=== PATIENT | female | born 1980 | race Caucasian/White ===

== ENCOUNTER 2017-01-16 07:20 | Emergency (ER) | payer OTHER ==
[~2017-01-16] VITALS: Ht 165.1 cm; Wt 81.2 kg
[~2017-01-16 07:20] MED LIST: BACTDS PO; CEPH-443 PO; GLIP2.5T14 PO; HYDR-762 PO; IBUP800T25 PO; OMEP40CA6 PO; ONDA4TAB35 PO
[2017-01-16 07:21] VITALS: Ht 165.1 cm; Wt 81.2 kg
[2017-01-16] MEDS ORDERED: ONDANSETRON 4 MG INJ IV STA (07:58)
[2017-01-16] MEDS ORDERED: SOD CHLORIDE 0.9% 1,000 ML IV STA (07:58)
[2017-01-16] MEDS ORDERED: morphine 4 MG/ML VIAL IV STA (08:23)
--- NOTE | 2017-01-16 08:30 | RADRPT ---
PROCEDURE: US Abdomen (right upper quadrant). CLINICAL INDICATION: Abdominal pain. History of cholecystectomy. TECHNIQUE: Multiple real-time longitudinal and transverse images of the right upper quadrant of th e abdomen were acquired utilizing a curved array transducer. Images were reviewed on a high-resoluti on PACS workstation. COMPARISON: CT abdomen pelvis 12/19/2015. FINDINGS: The liver is hepatomegaly 21.1 cm in length with a coarsened echotexture throughout suggesting steat osis without intrahepatic biliary dilatation. There is a cystic area in the region of the medial seg ment of the left lobe of the liver with some internal shadowing. This is of uncertain significance. There is normal hepatopedal flow within the main portal vein. The gallbladder is surgically absent . The common bile duct measures 6.0 mm in maximal dimension. The visualized portions of the pancre as are unremarkable. No free fluid is identified. The right kidney measures 12.2 cm in length. There is normal echogenicity within the right kidney. There is no perinephric fluid collection. No hydronephrosis, mass, or calculus is seen. IMPRESSION: 1. Hepatomegaly with a coarsened echotexture consistent with diffuse steatosis. 2. Previous cholecystectomy with mild dilation of the common bile duct at 6 mm. 3. 3.1 x 3.0 x 2.3 cm cystic area in the medial segment of the left lobe of the liver with some inte rnal echoes. This was not present on the CT scan of 12/19/2015. RPTAT: [facility] Physician Darío Date Time Electronically viewed and signed by Physician Darío on 01/16/2017 08:30 NORAH/
[2017-01-16 08:35] LABS: ADD UMIC YES; UR BILIRUBIN (Dip) NEGATIVE (NEGATIVE); UR BLOOD (Dip) TRACE (NEGATIVE); UR CLARITY CLEAR (CLEAR); UR COLOR LT. YELLOW (YELLOW); UR GLUCOSE (Dip) >=1000 % (NEGATIVE); UR KETONES (Dip) 15 (NEGATIVE); UR LEUKOCYTE ESTERASE (Dip) NEGATIVE (NEGATIVE); UR NITRITE (Dip) NEGATIVE (NEGATIVE); UR TOTAL PROTEIN (Dip) NEGATIVE (NEGATIVE); UR UROBILINOGEN (Dip) 0.2 E.U./dL (0.1-1.0)
[2017-01-16 08:39] LABS: ADD SCAN DIFF NO
[2017-01-16 08:44] LABS: BASOPHIL # 0.1 10^3/ul (0.0-0.1); BASOPHILS % 0.6 % (0.0-2.0); EOSINOPHILS # 0.3 10^3/ul (0.0-0.5); HEMATOCRIT 46.4 % (37.0-47.0); HEMOGLOBIN 16.2 g/dl (12.0-16.0); LYMPHOCYTES # 3.7 10^3/ul (0.8-2.9); LYMPHOCYTES % 40.3 % (15.0-51.0); MEAN CORPUSCULAR HEMOGLOBIN 31.2 pg (29.0-33.0); MEAN CORPUSCULAR HGB CONC 34.9 g/dl (32.0-37.0); MEAN CORPUSCULAR VOLUME 89.4 fl (82.0-101.0); MEAN PLATELET VOLUME 10.3 fl (7.4-10.4); MONOCYTE # 0.4 10^3/ul (0.3-0.9); MONOCYTES % 4.3 % (0.0-11.0); NEUTROPHIL # 4.8 10^3/ul (1.6-7.5); NEUTROPHILS % 51.6 % (39.0-77.0); PLATELET COUNT 218 10^3/UL (140-415); RED BLOOD COUNT 5.19 10^6/ul (4.20-5.40); RED CELL DISTRIBUTION WIDTH 12.5 % (11.5-14.5); WHITE BLOOD COUNT 9.3 10^3/ul (4.8-10.8)
[2017-01-16 08:57] LABS: ALBUMIN 4.6 g/dl (3.3-4.9); ALBUMIN/GLOBULIN RATIO 1.27; BILIRUBIN,INDIRECT 0.9 mg/dl (0-1.1); BILIRUBIN,TOTAL 0.9 mg/dl (0.2-1.3); CALCIUM 9.6 mg/dl (8.4-10.2); CREATININE 0.45 mg/dl (0.44-1.00); POTASSIUM 4.5 mmol/L (3.5-5.1); TOTAL PROTEIN 8.2 g/dl (6.1-8.1)
[2017-01-16 08:59] LABS: UR BACTERIA OCCASIONAL; UR SQUAMOUS EPITHELIAL CELL FEW; URINE RBCS 0-2 /HPF (0)
[2017-01-16] MEDS ORDERED: DICYCLOMINE 10 MG CAP PO ONE (10:00)
[2017-01-16] MEDS ORDERED: DICY10CA60 PO (10:38)
--- NOTE | 2017-01-16 10:42 | ERD ---
ER Documentation Chief Complaint Date/Time DATE: 01/16/17 TIME: 10:39 Chief Complaint ap intermittent since monday HPI 36-year-old female with a past medical history of diabetes, status post cholecystectomy in January 2016 presents to the ED complaining of a constant burning right upper quadrant pain that radiates to her back that started 4 days ago. Reports that her last menses was on December 20, 2016. States that her surgeon that did the cholecystectomy was Dr. Ramirez. Reports that she is taking glyburide. States that she went to [facility] in September 2016 and they stated that she had residual gallstones. Reports that she feels nauseous but denies any vomiting. Denies any vaginal bleeding, vaginal discharge, chest pain, shortness of breath, diarrhea, constipation. ROS All systems reviewed and are negative except as per history of present illness. Medications Home Meds Active Scripts Ondansetron (Ondansetron Odt) 4 Mg Tab.rapdis, 4 MG PO Q6H Y for NAUSEA AND/OR VOMITING, #10 TAB Prov:SERENA MARINA PA-C 01/16/17 Dicyclomine Hcl* (Bentyl*) 10 Mg Capsule, 10 MG PO QID, #30 CAP Prov:SERENA MARINA PA-C 01/16/17 Ibuprofen* (Motrin*) 800 Mg Tab, 800 MG PO Q6H Y for PAIN AND OR ELEVATED TEMP, #30 TAB Prov:LESLY MAYER PA-C 12/19/15 Ondansetron Hcl* (Zofran* ODT) 4 mg -ODT Tab.disper, 4 MG PO Q6 Y for NAUSEA AND /OR VOMITING, #20 TAB Prov:BRIDGET SANTIAGO 05/28/15 Hydrocodone Bit-Acetaminophen* ([place]*) 10-325 Mg Tablet, 1 TAB PO Q6 Y for PAIN , #20 TAB Prov:FRANCIA BLANCA PA-C 05/26/15 Reported Medications Glipizide XL* (Glipizide XL*) 2.5 Mg Tab.er.24, 2.5 MG PO DAILY, TAB 01/06/16 Omeprazole* (Omeprazole*) 40 Mg Capsule.dr, 40 MG PO DAILY, #30 CAP 01/06/16 Allergies Allergies: Coded Allergies: piperacillin (Verified Allergy, Unknown, 01/16/17) tazobactam (Verified Allergy, Unknown, 01/16/17) PMhx/Soc History of Surgery: Yes (CSECTION X 1, EXPLORATORY LAPAROTOMY, SEPTUM ; GALLBLADDER REMOVAL) Anesthesia Reaction: No Hx Neurological Disorder: No Hx Respiratory Disorders: No Hx Cardiac Disorders: No Hx Psychiatric Problems: No Hx Miscellaneous Medical Probl: No (DIABETES MELLITUS) Hx Alcohol Use: Yes Hx Substance Use: No Hx Tobacco Use: No Smoking Status: Never smoker Physical Exam Vitals Vital Signs Date Time Temp Pulse Resp B/P Pulse Ox O2 Delivery O2 Flow Rate FiO2 01/16/17 09:30 98.1 80 18 133/83 100 Room Air 01/16/17 07:21 97.8 90 18 154/94 99 Physical Exam Const: [id number], well-nourished. In no acute distress. Head: Atraumatic, normocephalic Eyes: Normal Conjunctiva without injection. No purulent discharge. ENT: Normal external ear, nose. Moist oropharynx without tonsillar exudates. Non -erythematous pharynx. Uvula midline. No drooling. No trismus. Neck: No cervical midline tenderness. Full range of motion. No meningismus. No cervical lymphadenopathy. No JVD. Resp: Clear to auscultation bilaterally. No wheezing, rhonchi, rales, or crackles. No accessory muscle use. No retractions. Cardio: Regular rate and rhythm. No murmurs, rubs or gallops. Abd: Soft, right upper quadrant tenderness, non distended. Normal bowel sounds. No palpable masses. No rebound tenderness. No guarding. Negative McBurney' s point. Negative psoas sign. Negative obturator sign. Skin: No petechiae or rashes Back: No midline tenderness. No CVA tenderness. Ext: No cyanosis, or edema. Neur: Awake and alert. Normal gait. Normal coordination. Psych: Normal Mood and Affect Results 24 hrs Laboratory Tests Test 01/16/17 08:00 01/16/17 08:25 01/16/17 09:56 Urine Color LT. YELLOW Urine Clarity CLEAR Urine pH 6.0 Urine Specific [place] 1.010 Urine Ketones 15 Urine Nitrite NEGATIVE Urine Bilirubin NEGATIVE Urine Urobilinogen 0.2 E.U./dL Urine Leukocyte Esterase NEGATIVE Urine Microscopic RBC 0-2/HPF Urine Microscopic WBC 0-2/HPF Urine Squamous Epithelial Cells FEW Urine Bacteria OCCASIONAL Urine Hemoglobin TRACE Urine Glucose >=1000% Urine Total Protein NEGATIVE White Blood Count 9.310^3/ul Red Blood Count 5.1910^6/ul Hemoglobin 16.2g/dl Hematocrit 46.4% Mean Corpuscular Volume 89.4fl Mean Corpuscular Hemoglobin 31.2pg Mean Corpuscular Hemoglobin Concent 34.9g/dl Red Cell Distribution Width 12.5% Platelet Count 31822^3/UL Mean Platelet Volume 10.3fl Neutrophils % 51.6% Lymphocytes % 40.3% Monocytes % 4.3% Eosinophils % 3.0% Basophils % 0.6% Nucleated Red Blood Cells % 0.0/100WBC Neutrophils # 4.810^3/ul Lymphocytes # 3.710^3/ul Monocytes # 0.410^3/ul Eosinophils # 0.310^3/ul Basophils # 0.110^3/ul Nucleated Red Blood Cells # 0.010^3/ul Sodium Level 135mmol/L Potassium Level 4.5mmol/L Chloride Level 104mmol/L Carbon Dioxide Level 21mmol/L Anion Gap 15 Blood Urea Nitrogen 11mg/dl Creatinine 0.45mg/dl Glucose Level 314mg/dl Calcium Level 9.6mg/dl Total Bilirubin 0.9mg/dl Direct Bilirubin 0.00mg/dl Indirect Bilirubin 0.9mg/dl Aspartate Amino Transf (AST/SGOT) 34IU/L Alanine Aminotransferase (ALT/SGPT) 43IU/L Alkaline Phosphatase 99IU/L Total Protein 8.2g/dl Albumin 4.6g/dl Globulin 3.60g/dl Albumin/Globulin Ratio 1.27 Lipase 108U/L Bedside Glucose 251mg/dL Current Medications Medications (Trade) Dose Ordered Sig/Yinka Route PRN Reason Start Time Stop Time Status Last Admin Dose Admin Sodium Chloride (NS) 1,000 ml @ 1,000 mls/hr Q1H STAT IV 01/16/17 07:58 01/16/17 08:57 DC 01/16/17 08:28 Ondansetron HCl (Zofran Inj) 4 mg ONCE STAT IV 01/16/17 07:58 01/16/17 08:00 DC 01/16/17 08:28 Morphine Sulfate (morphine) 4 mg ONCE STAT IV 01/16/17 08:23 01/16/17 08:24 DC 01/16/17 08:36 Dicyclomine HCl (Bentyl) 10 mg ONCE ONCE PO 01/16/17 10:00 01/16/17 10:01 DC 01/16/17 10:04 Procedures/[facility] This is a 36-year-old female with a past medical history of diabetes and status post cholecystectomy presenting to the ED complaining of right upper quadrant pain. Patient is afebrile and nontoxic-appearing. Patient has normal vital signs. Patient was further worked up with CBC, CMP, lipase, UA, urine , gallbladder ultrasound. Patient's pain and symptoms have improved after treatment with 4 mg IV Morphine, 4 mg IV Zofran, Bentyl. CBC: No leukocytosis. No e/o of systemic infection. No e/o anemia. CMP: No e/o severe acidosis, alkalosis, renal failure, diabetic ketoacidosis, liver disease Lipase within normal limits. Urine: No leukocyte esterase, no nitrites, no hematuria. Urine : Negative PROCEDURE: US Abdomen (right upper quadrant). CLINICAL INDICATION: Abdominal pain. History of cholecystectomy. TECHNIQUE: Multiple real-time longitudinal and transverse images of the right upper quadrant of the abdomen were acquired utilizing a curved array transducer. Images were reviewed on a high-resolution PACS workstation. COMPARISON: CT abdomen pelvis 12/19/2015. FINDINGS: The liver is hepatomegaly 21.1 cm in length with a coarsened echotexture throughout suggesting steatosis without intrahepatic biliary dilatation. There is a cystic area in the region of the medial segment of the left lobe of the liver with some internal shadowing. This is of uncertain significance. There is normal hepatopedal flow within the main portal vein. The gallbladder is surgically absent. The common bile duct measures 6.0 mm in maximal dimension. The visualized portions of the pancreas are unremarkable. No free fluid is identified. The right kidney measures 12.2 cm in length. There is normal echogenicity within the right kidney. There is no perinephric fluid collection. No hydronephrosis, mass, or calculus is seen. IMPRESSION: 1. Hepatomegaly with a coarsened echotexture consistent with diffuse steatosis. 2. Previous cholecystectomy with mild dilation of the common bile duct at 6 mm. 3. 3.1 x 3.0 x 2.3 cm cystic area in the medial segment of the left lobe of the liver with some internal echoes. This was not present on the CT scan of 2015. Patient was noted to have diffuse steatosis noted on her gallbladder ultrasound. This could be the reason for patient's right upper quadrant pain there is no gallstones noted. No leukocytosis. No transaminitis. No elevated bilirubin. Low suspicion for cholangitis, choledocholithiasis, pancreatitis, or other emergent conditions. A differential diagnosis considered includes but is not limited to gastritis, GERD, peptic ulcer disease, cholecystitis, choledocholithiasis, cholangitis, pancreatitis, appendicitis, bowel obstruction , ileus, volvulus, nephrolithiasis, pyelonephritis, hepatitis, perforated viscus , diverticulitis, abdominal hernia, acute abdomen, mesenteric ischemia or other emergent conditions. This case was discussed with my supervising physician Dr. Siegel who agreed with the management and discharge plan. Discharge medications: Angela Wong Follow up with primary care physician and Dr. Ramirez in 1-2 days. Instructed patient to return to the ED sooner for any worsening symptoms. Patient's questions were answered. Patient understood and agreed with discharge plan. Patient discharged stable. Departure Diagnosis: Primary Impression: Right upper quadrant pain Condition: Stable Patient Instructions: Abdominal Pain, Unknown Cause, (Female) Referrals: [facility] YOU HAVE RECEIVED A MEDICAL SCREENING EXAM AND THE RESULTS INDICATE THAT YOU DO NOT HAVE A CONDITION THAT REQUIRES URGENT TREATMENT IN THE EMERGENCY DEPARTMENT. FURTHER EVALUATION AND TREATMENT OF YOUR CONDITION CAN WAIT UNTIL YOU ARE SEEN IN YOUR DOCTORS OFFICE WITHIN THE NEXT 1-2 DAYS. IT IS YOUR RESPONSIBILITY TO MAKE AN APPOINTMENT FOR FOLOW-UP CARE. IF YOU HAVE A PRIMARY DOCTOR --you should call your primary doctor and schedule an appointment IF YOU DO NOT HAVE A PRIMARY DOCTOR YOU CAN CALL OUR PHYSICIAN REFERRAL HOTLINE AT IF YOU CAN NOT AFFORD TO SEE A PHYSICIAN YOU CAN CHOSE FROM THE FOLLOWING [facility] [address] [facility] [address] [facility] [address] [facility] [address] [facility] [address] [facility] [facility] [address] [facility]. [facility] YOU HAVE RECEIVED A MEDICAL SCREENING EXAM AND THE RESULTS INDICATE THAT YOU DO NOT HAVE A CONDITION THAT REQUIRES URGENT TREATMENT IN THE EMERGENCY DEPARTMENT. FURTHER EVALUATION AND TREATMENT OF YOUR CONDITION CAN WAIT UNTIL YOU ARE SEEN IN YOUR DOCTORS OFFICE WITHIN THE NEXT 1-2 DAYS. IT IS YOUR RESPONSIBILITY TO MAKE AN APPOINTMENT FOR FOLOW-UP CARE. IF YOU HAVE A PRIMARY DOCTOR --you should call your primary doctor and schedule and appointment IF YOU DO NOT HAVE A PRIMARY DOCTOR YOU CAN CALL OUR PHYSICIAN REFERRAL HOTLINE AT . IF YOU CAN NOT AFFORD TO SEE A PHYSICIAN YOU CAN CHOSE FROM THE FOLLOWING [facility] INSTITUTIONS: [facility] [address] [place] [address] [facility] [address] [place] [address] [facility] [address] [place] [address] [facility] Additional Instructions: FOLLOW UP WITH YOUR PRIMARY CARE PHYSICIAN TOMORROW for a referral to front edger. Return to this facility if you are not improving as expected. SERENA MARINA PA-C Jan 16, 2017 10:42 SERENA MARINA PA-C Jan 16, 2017 10:42
[2017-01-16] MEDS ORDERED: ONDA4TAB14 PO (10:43)
[2017-01-16 10:53] VITALS: BP 110/78; PULSE 78; RESP 18; TEMP 98.2
== END 2017-01-16 10:55 | disposition home or self-care (01) ==
LOC: FTE 07:20
DX: R10.11 Right upper quadrant pain (principal); E11.9 Type 2 diabetes mellitus without complications; R11.0 Nausea; Z79.84 Long term (current) use of oral hypoglycemic drugs
CPT/HCPCS: 76705; 80053; 81001; 82962; 83690; 85025; J2270; J2405; J7030; Z7610; 81003; 96361; 96374; 96375

== ENCOUNTER 2017-02-03 12:32 | Emergency (ER) | payer OTHER ==
[~2017-02-03] VITALS: Wt 90.5 kg
[~2017-02-03 12:32] MED LIST changes: -BACTDS PO; -CEPH-443 PO; +DICY10CA60 PO; +ONDA4TAB14 PO
[2017-02-03] MEDS ORDERED: SOD CHLORIDE 0.9% 1,000 ML IV STA (12:58)
[2017-02-03] MEDS ORDERED: morphine 4 MG/ML VIAL IV STA (12:58)
[2017-02-03] MEDS ORDERED: ONDANSETRON 4 MG INJ IV STA (12:58)
[2017-02-03] MEDS ORDERED: FAMOTIDINE 20 MG INJ IV STA (12:58)
[2017-02-03 13:36] LABS: ADD SCAN DIFF NO
[2017-02-03 13:38] LABS: ABNORMAL IP MESSAGE 1; BASOPHIL # 0.1 10^3/ul (0.0-0.1); BASOPHILS % 0.5 % (0.0-2.0); EOSINOPHILS # 0.4 10^3/ul (0.0-0.5); EOSINOPHILS % 3.7 % (0.0-7.0); HEMATOCRIT 47.1 % (37.0-47.0); HEMOGLOBIN 16.5 g/dl (12.0-16.0); LYMPHOCYTES # 5.1 10^3/ul (0.8-2.9); LYMPHOCYTES % 46.1 % (15.0-51.0); MEAN CORPUSCULAR HEMOGLOBIN 30.9 pg (29.0-33.0); MEAN CORPUSCULAR VOLUME 88.2 fl (82.0-101.0); MEAN PLATELET VOLUME 10.1 fl (7.4-10.4); MONOCYTE # 0.4 10^3/ul (0.3-0.9); MONOCYTES % 3.9 % (0.0-11.0); NEUTROPHILS % 45.5 % (39.0-77.0); PLATELET COUNT 246 10^3/UL (140-415); RED BLOOD COUNT 5.34 10^6/ul (4.20-5.40)
[2017-02-03 13:44] LABS: ADD UMIC YES; URINE BILIRUBIN (Dip) NEGATIVE (NEGATIVE); URINE BLOOD (Dip) 1+ (NEGATIVE); URINE COLOR LT. YELLOW (YELLOW); URINE GLUCOSE (Dip) >=1000 % (NEGATIVE); URINE KETONES (Dip) TRACE (NEGATIVE); URINE LEUKOCYTE ESTERASE (Dip) NEGATIVE (NEGATIVE); URINE NITRITE (Dip) POSITIVE (NEGATIVE); URINE TOTAL PROTEIN (Dip) NEGATIVE (NEGATIVE); URINE UROBILINOGEN (Dip) 0.2 E.U./dL (0.1-1.0)
[2017-02-03 13:56] LABS: ALBUMIN 4.7 g/dl (3.3-4.9); ALBUMIN/GLOBULIN RATIO 1.3; BILIRUBIN,INDIRECT 0.7 mg/dl (0-1.1); BILIRUBIN,TOTAL 0.7 mg/dl (0.2-1.3); CALCIUM 9.5 mg/dl (8.4-10.2); CREATININE 0.45 mg/dl (0.44-1.00); POTASSIUM 4.1 mmol/L (3.5-5.1); TOTAL PROTEIN 8.3 g/dl (6.1-8.1)
--- NOTE | 2017-02-03 14:04 | RADRPT ---
PROCEDURE: US Abdomen (right upper quadrant). CLINICAL INDICATION: Right upper quadrant pain. TECHNIQUE: Multiple real-time longitudinal and transverse images of the right upper quadrant of th e abdomen were acquired utilizing a curved array transducer. Images were reviewed on a high-resoluti on PACS workstation. COMPARISON: 01/16/2017. FINDINGS: The liver is borderline enlarged at 19.4 cm with a coarse echotexture suggesting steatosis. The pre viously described hypoechoic focus in the right lobe of the liver measures 3.3 x 2.0 x 2.5 cm. This contains some calcification in the periphery. There is normal hepatopedal flow within the main ana maría l vein. The gallbladder is surgically absent The common bile duct measures 4.3 mm in maximal dimen jania. The visualized portions of the pancreas are unremarkable with obscuration of the tail of the pancreas. No free fluid is identified. The right kidney measures 11.1 cm in length. There is normal echogenicity within the right kidney. There is no perinephric fluid collection. No hydronephrosis, mass, or calculus is seen. IMPRESSION: 1. Hepatomegaly with a coarse echotexture suggesting diffuse steatosis. 2. Previous cholecystectomy without significant biliary tree dilatation. 3. No change in a partially calcified cystic area in the right lobe of the liver measuring 3.3 x 2. 0 x 2.5 cm. RPTAT: [facility] Physician Darío Date Time Electronically viewed and signed by Physician Darío on 02/03/2017 14:03 /
[2017-02-03 14:12] LABS: BACTERIA,URINE MODERATE; URINE RBCS 0-2 /HPF (0)
[2017-02-03] MEDS ORDERED: HYDR-906 PO (14:33)
[2017-02-03] MEDS ORDERED: KETOROLAC 30 MG INJ IV STA (14:33)
[2017-02-03] MEDS ORDERED: NITR-58 PO (14:33)
[2017-02-03] MEDS ORDERED: IBUP-1542 PO (14:35)
[2017-02-03] MEDS ORDERED: ONDA4TAB8 PO (14:36)
--- NOTE | 2017-02-03 14:48 | ERD ---
ER Documentation Chief Complaint Date/Time DATE: 02/03/17 TIME: 14:44 Chief Complaint r upper abd pain for the past week. nausea and vomiting no diarrhea HPI This is a 36-year-old female that presents to the ER with right upper quadrant pain that started last week. Patient states that right upper quadrant pain radiates to her back and is sharp and now constant. Patient states that 3 weeks ago she began to have right upper quadrant pain, even though she did have a cholecystectomy last December. Pain however has gotten worse and is now constant. Patient has nausea and nonbilious nonbloody vomiting. She denies any fevers or chills she denies any diarrhea. ROS 12 point review of systems was done, all negative except per HPI. Medications Home Meds Active Scripts Ondansetron Hcl* (Zofran*) 4 Mg Tablet, 4 MG PO Q6H for NAUSEA AND/OR VOMITING, #30 TAB Prov:BRIDGET SANTIAGO 02/03/17 Ibuprofen* (Motrin*) 600 Mg Tab, 600 MG PO Q6, #30 TAB Prov:BRIDGET SANTIAGO 02/03/17 Nitrofurantoin Monohyd Macrocr* (Macrobid*) 100 Mg Capsr, 100 MG PO BID for 7 Days, CAP Prov:BRIDGET SANTIAGO 02/03/17 Hydrocodone/Acetaminophen ([place] 5-325 Tablet) 1 Each Tablet, 1 TAB PO Q6H Y for PAIN, #10 TAB Prov:BRIDGET SANTIAGO 02/03/17 Ondansetron (Ondansetron Odt) 4 Mg Tab.rapdis, 4 MG PO Q6H Y for NAUSEA AND/OR VOMITING, #10 TAB Prov:SERENA MARINA PA-C 01/16/17 Dicyclomine Hcl* (Bentyl*) 10 Mg Capsule, 10 MG PO QID, #30 CAP Prov:SERENA MARINA PA-C 01/16/17 Ibuprofen* (Motrin*) 800 Mg Tab, 800 MG PO Q6H Y for PAIN AND OR ELEVATED TEMP, #30 TAB Prov:LESLY MAYER PA-C 12/19/15 Ondansetron Hcl* (Zofran* ODT) 4 mg -ODT Tab.disper, 4 MG PO Q6 Y for NAUSEA AND /OR VOMITING, #20 TAB Prov:BRIDGET SANTIAGO 05/28/15 Hydrocodone Bit-Acetaminophen* ([place]*) 10-325 Mg Tablet, 1 TAB PO Q6 Y for PAIN , #20 TAB Prov:RIANNAFRANCIA Figueroa PA-C 05/26/15 Reported Medications Glipizide XL* (Glipizide XL*) 2.5 Mg Tab.er.24, 2.5 MG PO DAILY, TAB 01/06/16 Omeprazole* (Omeprazole*) 40 Mg Capsule.dr, 40 MG PO DAILY, #30 CAP 01/06/16 Allergies Allergies: Coded Allergies: piperacillin (Verified Allergy, Unknown, 02/03/17) tazobactam (Verified Allergy, Unknown, 02/03/17) PMhx/Soc History of Surgery: Yes (CSECTION X 1, EXPLORATORY LAPAROTOMY, SEPTUM ; GALLBLADDER REMOVAL) Anesthesia Reaction: No Hx Neurological Disorder: No Hx Respiratory Disorders: No Hx Cardiac Disorders: Yes (chlolesterol) Hx Psychiatric Problems: No Hx Miscellaneous Medical Probl: No (DIABETES MELLITUS) Hx Alcohol Use: Yes Hx Substance Use: No Hx Tobacco Use: No Smoking Status: Never smoker Physical Exam Vitals Vital Signs Date Time Temp Pulse Resp B/P Pulse Ox O2 Delivery O2 Flow Rate FiO2 02/03/17 12:36 98.3 92 21 140/91 98 Physical Exam GENERAL: The patient is well developed and appropriate for usual state of health , in no apparent distress. HEENT: Atraumatic. CHEST: Clear to auscultation bilaterally. There are no rales, wheezes or rhonchi. HEART: Regular rate and rhythm. No murmurs, clicks, rubs or gallops. ABDOMEN: Soft, nondistended, tender to palpation in the right upper quadrant good bowel sounds. No rebound or guarding. No gross peritonitis. No gross organomegaly or masses. No Dominique sign or McBurney point tenderness. BACK: No midline or flank tenderness. NEURO: Alert and oriented. SKIN:The skin is warm and dry. Result Diagram: 02/03/17 1325 02/03/17 1325 Results 24 hrs Laboratory Tests Test 02/03/17 13:20 02/03/17 13:25 Urine Color LT. YELLOW Urine Clarity CLEAR Urine pH 5.5 Urine Specific [place] 1.025 Urine Ketones TRACE Urine Nitrite POSITIVE Urine Bilirubin NEGATIVE Urine Urobilinogen 0.2 E.U./dL Urine Leukocyte Esterase NEGATIVE Urine Microscopic RBC 0-2/HPF Urine Microscopic WBC 5-10/HPF Urine Epithelial Cells FEW Urine Bacteria MODERATE Urine Hemoglobin 1+ Urine Glucose >=1000% Urine Total Protein NEGATIVE White Blood Count 11.010^3/ul Red Blood Count 5.3410^6/ul Hemoglobin 16.5g/dl Hematocrit 47.1% Mean Corpuscular Volume 88.2fl Mean Corpuscular Hemoglobin 30.9pg Mean Corpuscular Hemoglobin Concent 35.0g/dl Red Cell Distribution Width 12.0% Platelet Count 59560^3/UL Mean Platelet Volume 10.1fl Neutrophils % 45.5% Lymphocytes % 46.1% Monocytes % 3.9% Eosinophils % 3.7% Basophils % 0.5% Nucleated Red Blood Cells % 0.0/100WBC Neutrophils # 5.010^3/ul Lymphocytes # 5.110^3/ul Monocytes # 0.410^3/ul Eosinophils # 0.410^3/ul Basophils # 0.110^3/ul Nucleated Red Blood Cells # 0.010^3/ul Sodium Level 136mmol/L Potassium Level 4.1mmol/L Chloride Level 100mmol/L Carbon Dioxide Level 23mmol/L Anion Gap 17 Blood Urea Nitrogen 7mg/dl Creatinine 0.45mg/dl Glucose Level 259mg/dl Calcium Level 9.5mg/dl Total Bilirubin 0.7mg/dl Direct Bilirubin 0.00mg/dl Indirect Bilirubin 0.7mg/dl Aspartate Amino Transf (AST/SGOT) 43IU/L Alanine Aminotransferase (ALT/SGPT) 63IU/L Alkaline Phosphatase 112IU/L Total Protein 8.3g/dl Albumin 4.7g/dl Globulin 3.60g/dl Albumin/Globulin Ratio 1.30 Lipase 170U/L Current Medications Medications (Trade) Dose Ordered Sig/Yinka Route PRN Reason Start Time Stop Time Status Last Admin Dose Admin Sodium Chloride (NS) 1,000 ml @ 1,000 mls/hr Q1H STAT IV 02/03/17 12:58 02/03/17 13:57 DC 02/03/17 13:25 Morphine Sulfate (morphine) 6 mg ONCE STAT IV 02/03/17 12:58 02/03/17 12:59 DC 02/03/17 13:25 Ondansetron HCl (Zofran Inj) 4 mg ONCE STAT IV 02/03/17 12:58 02/03/17 12:59 DC 02/03/17 13:24 Famotidine (Pepcid Iv) 20 mg ONCE STAT IV 02/03/17 12:58 02/03/17 12:59 DC 02/03/17 13:24 Ketorolac Tromethamine (Toradol) 30 mg ONCE STAT IV 02/03/17 14:33 02/03/17 14:34 DC Procedures/MDM Differential Diagnosis: GERD, gastritis, peptic ulcer disease, pancreatitis, cholecystitis, choledocholithiasis, biliary colic, cholangitis, Puna-Iotx-Zfgcab , ACS/MS, Pnuemonia. This is a 36-year-old female presents to the ER with right upper quadrant pain. Patient did have a cholecystectomy a year ago. At that time ultrasound is negative for any biliary tree dilation. Patient liver function tests and lipase is normal. I doubt cholangitis. Doubt pancreatitis. Patient is afebrile and well-appearing. Patient will be sent home with Newnan , ibuprofen, Zofran and Macrobid for the UTI that was found here in the ER. Patient has an appointment with her surgeon on Monday. She also needs to follow-up with her primary care doctor within 1-2 days or return to ER sooner if symptoms worsen. My medical decision making was shared with the patient she understands and agrees with plan Departure Diagnosis: Primary Impression: UTI (urinary tract infection) Additional Impression: Abdominal pain Condition: Stable Patient Instructions: Abdominal Pain, Understanding Urinary Tract Infections ( UTIs) Additional Instructions: Call your primary care doctor TOMORROW for an appointment during the next 1-2 days.See the doctor sooner or return here if your condition worsens before your appointment time. BRIDGET SANTIAGO February 03, 2017 14:48
[2017-02-03 15:36] VITALS: BP 130/80; PULSE 79; RESP 18; TEMP 98.7
== END 2017-02-03 15:37 | disposition home or self-care (01) ==
LOC: FTE 12:32
DX: N39.0 Urinary tract infection, site not specified (principal); R11.2 Nausea with vomiting, unspecified; E11.9 Type 2 diabetes mellitus without complications; Z79.84 Long term (current) use of oral hypoglycemic drugs
CPT/HCPCS: 76705; 80053; 81001; 81003; 83690; 85025; J1885; J2270; J2405; J7030; Z7610; 36415; 96374; 96375

== ENCOUNTER 2017-02-10 09:14 | Inpatient (IN) | payer OTHER ==
[2017-02-09 14:24] VITALS: Ht 160 cm; Wt 93.0 kg
[~2017-02-10] VITALS: Ht 160 cm; Wt 93.0 kg
[2017-02-10] VITALS (20 sets, daily range): BP systolic 106–136; BP diastolic 53–78; PULSE 72–92; RESP 10–36
[~2017-02-10 09:14] MED LIST changes: +ACETAMINOPHEN 1000 MG/100 ML IVPB ONE; +HYDR-906 PO; +IBUP-1542 PO; +NITR-58 PO; +ONDA4TAB8 PO
[2017-02-10] MEDS ORDERED: METF500T4 PO (10:35)
[2017-02-10] MEDS ORDERED: OMEG1CAP90 PO (10:35)
[2017-02-10 10:44] LABS: INR 0.92; PARTIAL THROMBOPLASTIN TIME 25.8 Sec (25.0-35.0); PROTIME 12.4 Sec (12.2-14.2)
[2017-02-10] MEDS ORDERED: CLINDAMYCIN 600 MG/D5W (PMX) 50 ML IVPB ONE (11:00)
[2017-02-10] MEDS ORDERED: SOD CHLORIDE 0.9% 1,000 ML IV SCH (11:00)
[2017-02-10] MEDS ORDERED: PROPOFOL 0 ML ONE (12:25)
[2017-02-10] MEDS ORDERED: DEXAMETHASONE 4 MG/ML 1 ML INJ ONE (12:43)
[2017-02-10] MEDS ORDERED: ROCURONIUM 50 MG INJ ONE (13:01)
[2017-02-10] MEDS ORDERED: LABETALOL HCL 20MG INJ ONE (13:11)
[2017-02-10] MEDS ORDERED: BUPIVACAINE 0.25% (MPF) 30 ML INJ ONE (13:11)
[2017-02-10] MEDS ORDERED: MEPERIDINE 100 MG INJ ONE (13:12)
[2017-02-10] MEDS ORDERED: PROPOFOL 40 ML ONE (13:30)
[2017-02-10] MEDS ORDERED: ONDANSETRON 4 MG INJ ONE (13:30)
[2017-02-10] MEDS ORDERED: PROPOFOL 100 ML ONE (13:30)
[2017-02-10] MEDS ORDERED: GLYCOPYRROLATE 0.4 MG INJ ONE (13:47)
[2017-02-10] MEDS ORDERED: NEOSTIGMINE 3 MG/3 ML SYRINGE ONE (13:47)
--- NOTE | 2017-02-10 14:02 | OPR ---
Date/Time of Note Date/Time of Note DATE: 02/10/17 TIME: 14:01 Operative Report Procedure Date: February 10, 2017 Preoperative Diagnosis gallbladder remnant possible cystic duct with stones Postoperative Diagnosis same Operation Performed open adiel with cystic duct remnant resection localized adjacent tissue transfer with the use of skin flaps Surgeon: Taras BLISS Specimens gallbladder Taras BLISS February 10, 2017 14:02
[2017-02-10] MEDS: SOD CHLORIDE 0.9% 1,000 ML IV SCH ×2 (14:03→23:40)
--- NOTE | 2017-02-10 14:20 | OPR ---
DATE OF OPERATION: 02/10/2017 INDICATION: This is a 36-year-old female who had undergone previous laparoscopic cholecystectomy. She has been having persistent symptoms, on imaging is found to have dilation of the remnant cystic duct with stones. She requests open cholecystectomy and cystic duct resection for definitive manage ment. Risks, alternatives, benefits, and personnel were discussed with patient. Patient expressed understanding and consents to the operation. PREOPERATIVE DIAGNOSIS: Remnant cystic duct dilation. POSTOPERATIVE DIAGNOSIS: Remnant cystic duct dilation. PROCEDURE: 1. Open cholecystectomy with cystic duct remnant resection. 2. Localized adjacent tissue transfer to skin flaps: 3. Therapeutic injection of localized anesthesia, CPT code 49140. SURGEON: Rui Urbina MD SPECIMEN: Remnant cystic duct dilation with gallstones. COMPLICATIONS: None. ANESTHESIA: General. PROCEDURE: The patient was taken to the OR and prepped and draped in the usual sterile fashion. Carreon rgical timeout was performed. IV antibiotics were given. Right subcostal incision was made with a 10 blade. Dissection cautery was carried down through the abdominal wall. Retractions were placed. On appearance, there is no identified gallbladder; however, on further closer inspection, intrahe patic cystic duct remnant is apparent with dilatation and stones. A right angle was placed after di ssection cautery through isolating the cystic duct remnant, and this was clamped across the proximal end of the cystic duct. The gallbladder was resected with remnant stones and irrigated out. The s tump was then tied with 2-0 silk and 2-0 suture ligature. There was good hemostasis. The abdominal wall was closed in 2-layer fashion with a running 0 PDS. The wound was irrigated. Skin was closed using skin delon. Local anesthesia was injected. Dry dressings were applied. Dictated By: RUI URBINA MD SB/SUSAN Conf#: [id number] DID#: [id number]
[2017-02-10] MEDS: HYDROmorphONE (0.2 MG/ML) 10ML SYG IV PRN ×3 (14:22→14:35)
[2017-02-10] MEDS ORDERED: hydrALAzine 20 MG INJ IV PRN (14:30)
[2017-02-10] MEDS ORDERED: MEPERIDINE 25 MG INJ IV PRN (14:30)
[2017-02-10] MEDS ORDERED: ONDANSETRON 4 MG INJ IV PRN (14:30)
[2017-02-10] MEDS ORDERED: EPHEDrine SULFATE 50 MG/5 ML SYG IV PRN (14:30)
[2017-02-10] MEDS ORDERED: morphine 2 MG INJ IV PRN (14:30)
[2017-02-10] MEDS ORDERED: LABETALOL HCL 20MG INJ IV PRN (14:30)
[2017-02-10] MEDS ORDERED: INSULIN ASPART [NOVOLOG] 3 ML PEN SC ONE (14:30)
[2017-02-10] MEDS ORDERED: FENTAnyl 50 MCG/ML VIAL IV PRN ×3 (14:30)
[2017-02-10] MEDS ORDERED: METOCLOPRAMIDE 10 MG INJ IV PRN (14:30)
[2017-02-10] MEDS ORDERED: DIPHENHYDRAMINE 50 MG INJ IV PRN (14:30)
[2017-02-10] MEDS ORDERED: HYDROmorphONE (0.2 MG/ML) 10ML SYG IV PRN ×2 (14:30)
[2017-02-10] MEDS: CEFAZOLIN 2 GM/50 ML (PMX) 50 ML IVPB SCH ×2 (15:49→22:19)
[2017-02-10 16:25] LABS: ADD SCAN DIFF NO
[2017-02-10 16:27] LABS: BASOPHILS % 0.2 % (0.0-2.0); EOSINOPHILS % 0.3 % (0.0-7.0); HEMATOCRIT 43.9 % (37.0-47.0); HEMOGLOBIN 15.3 g/dl (12.0-16.0); LYMPHOCYTES # 0.8 10^3/ul (0.8-2.9); LYMPHOCYTES % 7.2 % (15.0-51.0); MEAN CORPUSCULAR HEMOGLOBIN 31.5 pg (29.0-33.0); MEAN CORPUSCULAR HGB CONC 34.9 g/dl (32.0-37.0); MEAN CORPUSCULAR VOLUME 90.5 fl (82.0-101.0); MEAN PLATELET VOLUME 9.9 fl (7.4-10.4); MONOCYTE # 0.2 10^3/ul (0.3-0.9); MONOCYTES % 1.6 % (0.0-11.0); NEUTROPHIL # 10.5 10^3/ul (1.6-7.5); NEUTROPHILS % 90.4 % (39.0-77.0); PLATELET COUNT 182 10^3/UL (140-415); RED BLOOD COUNT 4.85 10^6/ul (4.20-5.40); RED CELL DISTRIBUTION WIDTH 12.5 % (11.5-14.5); WHITE BLOOD COUNT 11.6 10^3/ul (4.8-10.8)
[2017-02-10 16:44] LABS: ALBUMIN 4.1 g/dl (3.3-4.9); ALBUMIN/GLOBULIN RATIO 1.32; BILIRUBIN,INDIRECT 0.5 mg/dl (0-1.1); BILIRUBIN,TOTAL 0.5 mg/dl (0.2-1.3); CALCIUM 8.5 mg/dl (8.4-10.2); CREATININE 0.43 mg/dl (0.44-1.00); POTASSIUM 4.4 mmol/L (3.5-5.1); TOTAL PROTEIN 7.2 g/dl (6.1-8.1)
[2017-02-10] MEDS: HYDROmorphONE 1 MG/ML SYG IV PRN ×3 (17:27→23:40)
[2017-02-10] MEDS ORDERED: INSULIN ASPART [NOVOLOG] 3 ML PEN SC SCH (17:55)
[2017-02-10] MEDS ORDERED: DEXTROSE 50% 50 ML SYRINGE IV PRN ×2 (18:00)
[2017-02-10] MEDS ORDERED: GLUCOSE GEL 15 GRAM TUBE PO PRN ×2 (18:00)
[2017-02-10] MEDS ORDERED: GLUCAGON 1 MG INJ IM PRN (18:00)
[2017-02-10] MEDS ORDERED: GLUCOSE GEL 15 GRAM TUBE BUCCAL PRN (18:00)
[2017-02-10] MEDS ORDERED: KETOROLAC 30 MG INJ IV STA (18:15)
[2017-02-10] MEDS: INSULIN ASPART [NOVOLOG] 3 ML PEN SC SCH ×2 (18:25→20:39)
--- NOTE | 2017-02-10 18:28 | HP ---
DATE OF ADMISSION: 02/10/2017 HISTORY OF PRESENT ILLNESS: The patient is a 36-year-old female well known to me from previous admi ssion. The patient has a history of diabetes and underwent laparoscopic cholecystectomy back in Dec; however, the patient continued to have symptoms, and further imaging revealed cystic duct c alcification and cystic duct stone. The patient was brought in to hospital today and underwent open cholecystectomy and cystic duct resection for definitive management. The patient did have signific ant postoperative pain and is being admitted for further evaluation and management. The patient den ied any chest pain or shortness of breath. No history of headache, dizziness, syncope. No history of fever or chills. No history of dysuria or hematuria. No history of focal weakness. The patient did have mild nausea for which she will be started on Zofran on p.r.n. basis. The patient reported that morphine intravenously was not effective. The patient will be switched to IV Dilaudid. The p atient denied any paresthesia or any weakness in any extremity. REVIEW OF SYSTEMS: Rest of the review of systems was unremarkable. PAST MEDICAL HISTORY: As stated above. PAST SURGICAL HISTORY: The patient is status post and also status post laparoscopic surge ry. ALLERGIES: ZOSYN. SOCIAL HISTORY: No smoking, no alcohol. FAMILY HISTORY: Noncontributory. PHYSICAL EXAMINATION: GENERAL: The patient is conscious, awake, alert. VITAL SIGNS: Temperature 97.7, pulse 78, respirations 20, blood pressure 109/68, O2 saturation 97% on 2 liters nasal cannula. HEENT: Atraumatic, normocephalic. Conjunctivae and lids normal. Oropharynx clear. NECK: Supple. No mass, no thyromegaly. CHEST: Fairly clear. No use of accessory muscles. CARDIOVASCULAR: S1, S2 normal. No murmur. ABDOMEN: The patient is status open cholecystectomy. EXTREMITIES: No leg edema. Pedal pulses palpable. SKIN: Without acute rash. NEUROLOGIC: The patient is awake, alert, fairly oriented with no gross focal deficit. LABORATORY DATA: WBC 11.6, hemoglobin 13.3, platelets 182. Sodium 136, potassium 4.4, random gluco se 271, AST 645, ALT 397. Compared to normal on 02/03/2017, bilirubin was normal. IMPRESSION: 1. Dilation and stone in the remnant cystic duct after she underwent laparoscopic cholecystectomy l ast year. The patient today underwent open cholecystectomy. 2. Diabetes mellitus. PLAN: The patient admitted on medical floor. The patient will be started on clear liquid diet whic h will be advanced as tolerated. The patient will be started on sliding scale insulin and will also be given IV fluid. We will use SCD for DVT prophylaxis. The patient received IV clindamycin due t o history of ALLERGY TO ZOSYN. We will also continue Cataldo and IV Dilaudid for pain control and Zof ran for nausea. Plan of care discussed with patient's mother. We will continue to follow her from a medical standpoint. Dictated By: NIKOS ELMORE/SUSAN Conf#: [id number] DID#: [id number]
[2017-02-10] MEDS: ONDANSETRON 4 MG INJ IV PRN (19:56)
[2017-02-10] MEDS: HYDROCODONE/APAP (5/325) TAB PO PRN (19:56)
[2017-02-11] MEDS ORDERED: ACCU-CHEK XX SCH (02:00)
[2017-02-11] MEDS: ACCU-CHEK XX SCH (02:10)
[2017-02-11] MEDS: HYDROCODONE/APAP (5/325) TAB PO PRN ×3 (02:11→17:53)
[2017-02-11] MEDS: HYDROmorphONE 1 MG/ML SYG IV PRN ×7 (03:33→23:31)
[2017-02-11] MEDS: ONDANSETRON 4 MG INJ IV PRN ×4 (03:38→20:02)
[2017-02-11 05:12] LABS: ADD SCAN DIFF NO
[2017-02-11 05:24] LABS: BASOPHILS % 0.4 % (0.0-2.0); EOSINOPHILS # 0.1 10^3/ul (0.0-0.5); EOSINOPHILS % 0.5 % (0.0-7.0); HEMATOCRIT 42.7 % (37.0-47.0); HEMOGLOBIN 14.4 g/dl (12.0-16.0); LYMPHOCYTES # 2.4 10^3/ul (0.8-2.9); LYMPHOCYTES % 22.1 % (15.0-51.0); MEAN CORPUSCULAR HEMOGLOBIN 30.9 pg (29.0-33.0); MEAN CORPUSCULAR HGB CONC 33.7 g/dl (32.0-37.0); MEAN CORPUSCULAR VOLUME 91.6 fl (82.0-101.0); MEAN PLATELET VOLUME 10.3 fl (7.4-10.4); MONOCYTE # 0.7 10^3/ul (0.3-0.9); NEUTROPHIL # 7.6 10^3/ul (1.6-7.5); NEUTROPHILS % 70.6 % (39.0-77.0); PLATELET COUNT 204 10^3/UL (140-415); RED BLOOD COUNT 4.66 10^6/ul (4.20-5.40); RED CELL DISTRIBUTION WIDTH 12.7 % (11.5-14.5); WHITE BLOOD COUNT 10.8 10^3/ul (4.8-10.8)
[2017-02-11 05:59] LABS: ALBUMIN 3.7 g/dl (3.3-4.9); POTASSIUM 4.8 mmol/L (3.5-5.1)
[2017-02-11 06:01] LABS: BILIRUBIN,INDIRECT 0.7 mg/dl (0-1.1); BILIRUBIN,TOTAL 0.7 mg/dl (0.2-1.3); CREATININE 0.46 mg/dl (0.44-1.00)
[2017-02-11 06:02] LABS: ALBUMIN/GLOBULIN RATIO 1.19; CALCIUM 8.5 mg/dl (8.4-10.2); TOTAL PROTEIN 6.8 g/dl (6.1-8.1)
[2017-02-11] MEDS: PANTOPRAZOLE (EC) 40 MG TAB PO SCH (06:14)
[2017-02-11] MEDS: CEFAZOLIN 2 GM/50 ML (PMX) 50 ML IVPB SCH (06:14)
[2017-02-11 08:05] VITALS: BP 114/76; RESP 20
[2017-02-11] MEDS: metFORMIN 500 MG TAB PO SCH ×2 (08:39→17:53)
[2017-02-11] MEDS: INSULIN ASPART [NOVOLOG] 3 ML PEN SC SCH ×4 (09:08→20:35)
--- NOTE | 2017-02-11 09:22 | PN ---
Date/Time of Note Date/Time of Note DATE: 02/11/17 TIME: 09:21 Assessment/Plan VTE Prophylaxis VTE Prophylaxis Intervention: SCD's Lines/Catheters IV Catheter Type (from Nrsg): Peripheral IV Urinary Cath still in place: Yes Reason Cath still needed: other (indicate) Assessment/Plan Chief Complaint/Hosp Course s/p open adiel Problems: Assessment/Plan some nausea and emesis will await until able to tolerate diet Subjective 24 Hr Interval Summary Free Text/Dictation some nausea and emesis no other issues Exam/Review of Systems Vital Signs Vitals Vital Signs Date Time Temp Pulse Resp B/P Pulse Ox O2 Delivery O2 Flow Rate FiO2 02/11/17 08:05 98.0 86 20 114/76 97 02/10/17 20:55 Nasal Cannula 2.0 Intake and Output 02/10/17 02/10/17 02/11/17 15:00 23:00 07:00 Intake Total 1000 ml 740 ml 1200 ml Output Total 200 ml 500 ml 1600 ml Balance 800 ml 240 ml -400 ml Exam c/d/i Results Result Diagram: 02/11/17 0445 02/11/17 0445 Results 24 hrs Laboratory Tests Test 02/10/17 10:10 02/10/17 10:15 02/10/17 16:15 02/10/17 17:42 Bedside Glucose 229 H 271 H Prothrombin Time 12.4 Prothrombin Time Ratio 1.0 INR International Normalized Ratio 0.92 Activated Partial Thromboplast Time 25.8 White Blood Count 11.6 H Red Blood Count 4.85 Hemoglobin 15.3 Hematocrit 43.9 Mean Corpuscular Volume 90.5 Mean Corpuscular Hemoglobin 31.5 Mean Corpuscular Hemoglobin Concent 34.9 Red Cell Distribution Width 12.5 Platelet Count 182 # Mean Platelet Volume 9.9 Neutrophils % 90.4 H Lymphocytes % 7.2 L Monocytes % 1.6 Eosinophils % 0.3 Basophils % 0.2 Nucleated Red Blood Cells % 0.0 Neutrophils # 10.5 H Lymphocytes # 0.8 Monocytes # 0.2 L Eosinophils # 0.0 Basophils # 0.0 Nucleated Red Blood Cells # 0.0 Sodium Level 136 Potassium Level 4.4 Chloride Level 107 Carbon Dioxide Level 21 Anion Gap 12 Blood Urea Nitrogen 12 Creatinine 0.43 L Glucose Level 300 H Calcium Level 8.5 Total Bilirubin 0.5 Direct Bilirubin 0.00 Indirect Bilirubin 0.5 Aspartate Amino Transf (AST/SGOT) 645 H Alanine Aminotransferase (ALT/SGPT) 397 H Alkaline Phosphatase 83 Total Protein 7.2 Albumin 4.1 Globulin 3.10 Albumin/Globulin Ratio 1.32 Test 02/10/17 20:37 02/11/17 02:12 02/11/17 04:45 02/11/17 08:38 Bedside Glucose 284 H 222 H 210 White Blood Count 10.8 Red Blood Count 4.66 Hemoglobin 14.4 Hematocrit 42.7 Mean Corpuscular Volume 91.6 Mean Corpuscular Hemoglobin 30.9 Mean Corpuscular Hemoglobin Concent 33.7 Red Cell Distribution Width 12.7 Platelet Count 204 Mean Platelet Volume 10.3 Neutrophils % 70.6 Lymphocytes % 22.1 Monocytes % 6.0 Eosinophils % 0.5 Basophils % 0.4 Nucleated Red Blood Cells % 0.0 Neutrophils # 7.6 H Lymphocytes # 2.4 Monocytes # 0.7 Eosinophils # 0.1 Basophils # 0.0 Nucleated Red Blood Cells # 0.0 Sodium Level 137 Potassium Level 4.8 Chloride Level 103 Carbon Dioxide Level 24 Anion Gap 15 Blood Urea Nitrogen 10 Creatinine 0.46 Glucose Level 206 Calcium Level 8.5 Total Bilirubin 0.7 Direct Bilirubin 0.00 Indirect Bilirubin 0.7 Aspartate Amino Transf (AST/SGOT) 264 H Alanine Aminotransferase (ALT/SGPT) 269 H Alkaline Phosphatase 59 Total Protein 6.8 Albumin 3.7 Globulin 3.10 Albumin/Globulin Ratio 1.19 Medications Medications Current Medications Cefazolin Sodium/ Dextrose (Ancef 2 Gm/50 ml (Pmx)) 50 ml @ 100 mls/hr Q8H IVPB Last administered on 02/11/17 06:14; Admin Dose 100 MLS/HR; Start at 14:30; Stop 02/11/17 at 14:29 Acetaminophen/ Hydrocodone Bitart 1 tab 1 tab Q6H PRN PO PAIN LEVEL 6-10 Last administered on 02/11/17 02:11; Admin Dose 1 TAB; Start 02/10/17 at 14:30 Sodium Chloride (NS) 1,000 ml @ 100 mls/hr Q10H IV Last administered on 23:40; Admin Dose 100 MLS/HR; Start 02/10/17 at 14:03 Hydromorphone HCl (Dilaudid) 1 mg Q3 PRN IV PAIN Last administered on 06:23; Admin Dose 1 MG; Start 02/10/17 at 17:30 Ondansetron HCl (Zofran Inj) 4 mg Q4H PRN IV NAUSEA AND/OR VOMITING Last administered on 02/11/17 03:38; Admin Dose 4 MG; Start 02/10/17 at 18:00 Miscellaneous Information 1 ea NOTE XX ; Start 02/10/17 at 18:00 Glucose (Glutose) 15 gm Q15M PRN PO DECREASED GLUCOSE; Start 02/10/17 at 18:00 Glucose (Glutose) 22.5 gm Q15M PRN PO DECREASED GLUCOSE; Start 02/10/17 at 18: 00 Dextrose (D50w Syringe) 25 ml Q15M PRN IV DECREASED GLUCOSE; Start 02/10/17 at 18:00 Dextrose (D50w Syringe) 50 ml Q15M PRN IV DECREASED GLUCOSE; Start 02/10/17 at 18:00 Glucagon (Glucagen) 1 mg Q15M PRN IM DECREASED GLUCOSE; Start 02/10/17 at 18:00 Glucose (Glutose) 15 gm Q15M PRN BUCCAL DECREASED GLUCOSE; Start 02/10/17 at 18 :00 Diagnostic Test (Pha) (Accu-Chek) 1 ea 02 XX Last administered on 02/11/17 02: 10; Admin Dose 1 EA; Start 02/11/17 at 02:00 Pantoprazole (Protonix Tab) 40 mg DAILY@06 PO Last administered on 02/11/17 06 :14; Admin Dose 40 MG; Start 02/11/17 at 06:00 Taras BLISS February 11, 2017 09:22
--- NOTE | 2017-02-11 11:09 | PN ---
Date/Time of Note Date/Time of Note DATE: 02/11/17 TIME: 11:08 Assessment/Plan VTE Prophylaxis VTE Prophylaxis Intervention: other Lines/Catheters IV Catheter Type (from [facility]): Peripheral IV Urinary Cath still in place: Yes Reason Cath still needed: skin wounds contaminated by urine Assessment/Plan Chief Complaint/Hosp Course 1. Dilation and stone in the remnant cystic duct after she underwent laparoscopic cholecystectomy last year. The patient today underwent open cholecystectomy. - s/p cholecystectomy 2. Diabetes mellitus. Problems: Subjective 24 Hr Interval Summary Free Text/Dictation Patient complain of pain in area of recent surgery Exam/Review of Systems Vital Signs Vitals Vital Signs Date Time Temp Pulse Resp B/P Pulse Ox O2 Delivery O2 Flow Rate FiO2 02/11/17 08:05 98.0 86 20 114/76 97 02/10/17 20:55 Nasal Cannula 2.0 Intake and Output 02/10/17 02/10/17 02/11/17 15:00 23:00 07:00 Intake Total 1000 ml 740 ml 1200 ml Output Total 200 ml 500 ml 1600 ml Balance 800 ml 240 ml -400 ml Exam Constitutional: well developed Head: atraumatic, normocephalic Neck: supple Respiratory: clear to auscultation Cardiovascular: regular rate and rhythm Gastrointestinal: soft, tender Extremities: normal pulses Results Result Diagram: 02/11/17 0445 02/11/17 0445 Results 24 hrs Laboratory Tests Test 02/10/17 16:15 02/10/17 17:42 02/10/17 20:37 02/11/17 02:12 White Blood Count 11.6 H Red Blood Count 4.85 Hemoglobin 15.3 Hematocrit 43.9 Mean Corpuscular Volume 90.5 Mean Corpuscular Hemoglobin 31.5 Mean Corpuscular Hemoglobin Concent 34.9 Red Cell Distribution Width 12.5 Platelet Count 182 # Mean Platelet Volume 9.9 Neutrophils % 90.4 H Lymphocytes % 7.2 L Monocytes % 1.6 Eosinophils % 0.3 Basophils % 0.2 Nucleated Red Blood Cells % 0.0 Neutrophils # 10.5 H Lymphocytes # 0.8 Monocytes # 0.2 L Eosinophils # 0.0 Basophils # 0.0 Nucleated Red Blood Cells # 0.0 Sodium Level 136 Potassium Level 4.4 Chloride Level 107 Carbon Dioxide Level 21 Anion Gap 12 Blood Urea Nitrogen 12 Creatinine 0.43 L Glucose Level 300 H Calcium Level 8.5 Total Bilirubin 0.5 Direct Bilirubin 0.00 Indirect Bilirubin 0.5 Aspartate Amino Transf (AST/SGOT) 645 H Alanine Aminotransferase (ALT/SGPT) 397 H Alkaline Phosphatase 83 Total Protein 7.2 Albumin 4.1 Globulin 3.10 Albumin/Globulin Ratio 1.32 Bedside Glucose 271 H 284 H 222 H Test 02/11/17 04:45 02/11/17 08:38 White Blood Count 10.8 Red Blood Count 4.66 Hemoglobin 14.4 Hematocrit 42.7 Mean Corpuscular Volume 91.6 Mean Corpuscular Hemoglobin 30.9 Mean Corpuscular Hemoglobin Concent 33.7 Red Cell Distribution Width 12.7 Platelet Count 204 Mean Platelet Volume 10.3 Neutrophils % 70.6 Lymphocytes % 22.1 Monocytes % 6.0 Eosinophils % 0.5 Basophils % 0.4 Nucleated Red Blood Cells % 0.0 Neutrophils # 7.6 H Lymphocytes # 2.4 Monocytes # 0.7 Eosinophils # 0.1 Basophils # 0.0 Nucleated Red Blood Cells # 0.0 Sodium Level 137 Potassium Level 4.8 Chloride Level 103 Carbon Dioxide Level 24 Anion Gap 15 Blood Urea Nitrogen 10 Creatinine 0.46 Glucose Level 206 Calcium Level 8.5 Total Bilirubin 0.7 Direct Bilirubin 0.00 Indirect Bilirubin 0.7 Aspartate Amino Transf (AST/SGOT) 264 H Alanine Aminotransferase (ALT/SGPT) 269 H Alkaline Phosphatase 59 Total Protein 6.8 Albumin 3.7 Globulin 3.10 Albumin/Globulin Ratio 1.19 Bedside Glucose 210 Medications Medications Current Medications Cefazolin Sodium/ Dextrose (Ancef 2 Gm/50 ml (Pmx)) 50 ml @ 100 mls/hr Q8H IVPB Last administered on 02/11/17 06:14; Admin Dose 100 MLS/HR; Start at 14:30; Stop 02/11/17 at 14:29 Acetaminophen/ Hydrocodone Bitart 1 tab 1 tab Q6H PRN PO PAIN LEVEL 6-10 Last administered on 02/11/17 02:11; Admin Dose 1 TAB; Start 02/10/17 at 14:30 Sodium Chloride (NS) 1,000 ml @ 100 mls/hr Q10H IV Last administered on 23:40; Admin Dose 100 MLS/HR; Start 02/10/17 at 14:03 Hydromorphone HCl (Dilaudid) 1 mg Q3 PRN IV PAIN Last administered on 09:51; Admin Dose 1 MG; Start 02/10/17 at 17:30 Ondansetron HCl (Zofran Inj) 4 mg Q4H PRN IV NAUSEA AND/OR VOMITING Last administered on 02/11/17 09:48; Admin Dose 4 MG; Start 02/10/17 at 18:00 Miscellaneous Information 1 ea NOTE XX ; Start 02/10/17 at 18:00 Glucose (Glutose) 15 gm Q15M PRN PO DECREASED GLUCOSE; Start 02/10/17 at 18:00 Glucose (Glutose) 22.5 gm Q15M PRN PO DECREASED GLUCOSE; Start 02/10/17 at 18: 00 Dextrose (D50w Syringe) 25 ml Q15M PRN IV DECREASED GLUCOSE; Start 02/10/17 at 18:00 Dextrose (D50w Syringe) 50 ml Q15M PRN IV DECREASED GLUCOSE; Start 02/10/17 at 18:00 Glucagon (Glucagen) 1 mg Q15M PRN IM DECREASED GLUCOSE; Start 02/10/17 at 18:00 Glucose (Glutose) 15 gm Q15M PRN BUCCAL DECREASED GLUCOSE; Start 02/10/17 at 18 :00 Diagnostic Test (Pha) (Accu-Chek) 1 ea 02 XX Last administered on 02/11/17 02: 10; Admin Dose 1 EA; Start 02/11/17 at 02:00 Pantoprazole (Protonix Tab) 40 mg DAILY@06 PO Last administered on 02/11/17 06 :14; Admin Dose 40 MG; Start 02/11/17 at 06:00 GERARDO RUTLEDGE February 11, 2017 11:08
[2017-02-11] MEDS: SOD CHLORIDE 0.9% 1,000 ML IV SCH ×2 (12:54→19:10)
[2017-02-11 19:30] VITALS: BP 109/70; RESP 18
[2017-02-12] MEDS: ACCU-CHEK XX SCH (02:06)
[2017-02-12] MEDS: HYDROCODONE/APAP (5/325) TAB PO PRN ×3 (02:06→14:26)
[2017-02-12] MEDS: HYDROmorphONE 1 MG/ML SYG IV PRN ×7 (02:56→22:06)
[2017-02-12] MEDS: SOD CHLORIDE 0.9% 1,000 ML IV SCH ×3 (06:03→18:20)
[2017-02-12] MEDS: PANTOPRAZOLE (EC) 40 MG TAB PO SCH (06:06)
[2017-02-12 08:00] VITALS: BP 110/72; RESP 16
[2017-02-12] MEDS: metFORMIN 500 MG TAB PO SCH ×2 (08:43→17:46)
[2017-02-12] MEDS: INSULIN ASPART [NOVOLOG] 3 ML PEN SC SCH ×4 (08:49→20:24)
--- NOTE | 2017-02-12 11:34 | PN ---
Date/Time of Note Date/Time of Note DATE: 02/12/17 TIME: 11:33 Assessment/Plan VTE Prophylaxis VTE Prophylaxis Intervention: other Lines/Catheters [facility] Saline Lock Urinary Cath still in place: Yes Reason Cath still needed: skin wounds contaminated by urine Assessment/Plan Chief Complaint/Hosp Course 1. Dilation and stone in the remnant cystic duct after she underwent laparoscopic cholecystectomy last year. The patient today underwent open cholecystectomy. - s/p cholecystectomy 2. Diabetes mellitus. Problems: Subjective 24 Hr Interval Summary Free Text/Dictation Patient still have pain but improved Exam/Review of Systems Vital Signs Vitals Vital Signs Date Time Temp Pulse Resp B/P Pulse Ox O2 Delivery O2 Flow Rate FiO2 02/12/17 08:00 98.4 78 16 110/72 100 02/10/17 20:55 Nasal Cannula 2.0 Intake and Output 02/11/17 02/11/17 02/12/17 15:00 23:00 07:00 Intake Total 1000 ml 1000 ml 1400 ml Output Total 950 ml 1600 ml Balance 1000 ml 50 ml -200 ml Exam Constitutional: well developed Head: atraumatic, normocephalic Neck: supple Respiratory: clear to auscultation Cardiovascular: regular rate and rhythm Gastrointestinal: non-tender, soft Extremities: normal pulses Results Result Diagram: 02/11/17 0445 02/11/17 0445 Results 24 hrs Laboratory Tests Test 02/11/17 11:58 02/11/17 12:53 02/11/17 17:52 02/11/17 20:30 Bedside Glucose 175 195 157 215 Test 02/12/17 02:08 02/12/17 07:45 Bedside Glucose 157 170 Medications Medications Current Medications Acetaminophen/ Hydrocodone Bitart 1 tab 1 tab Q6H PRN PO PAIN LEVEL 6-10 Last administered on 02/12/17 08:43; Admin Dose 1 TAB; Start 02/10/17 at 14:30 Sodium Chloride (NS) 1,000 ml @ 100 mls/hr Q10H IV Last administered on 12:54; Admin Dose 100 MLS/HR; Start 02/10/17 at 14:03 Hydromorphone HCl (Dilaudid) 1 mg Q3 PRN IV PAIN Last administered on 09:27; Admin Dose 1 MG; Start 02/10/17 at 17:30 Ondansetron HCl (Zofran Inj) 4 mg Q4H PRN IV NAUSEA AND/OR VOMITING Last administered on 02/11/17 20:02; Admin Dose 4 MG; Start 02/10/17 at 18:00 Miscellaneous Information 1 ea NOTE XX ; Start 02/10/17 at 18:00 Glucose (Glutose) 15 gm Q15M PRN PO DECREASED GLUCOSE; Start 02/10/17 at 18:00 Glucose (Glutose) 22.5 gm Q15M PRN PO DECREASED GLUCOSE; Start 02/10/17 at 18: 00 Dextrose (D50w Syringe) 25 ml Q15M PRN IV DECREASED GLUCOSE; Start 02/10/17 at 18:00 Dextrose (D50w Syringe) 50 ml Q15M PRN IV DECREASED GLUCOSE; Start 02/10/17 at 18:00 Glucagon (Glucagen) 1 mg Q15M PRN IM DECREASED GLUCOSE; Start 02/10/17 at 18:00 Glucose (Glutose) 15 gm Q15M PRN BUCCAL DECREASED GLUCOSE; Start 02/10/17 at 18 :00 Diagnostic Test (Pha) (Accu-Chek) 1 ea 02 XX Last administered on 02/12/17 02: 06; Admin Dose 1 EA; Start 02/11/17 at 02:00 Pantoprazole (Protonix Tab) 40 mg DAILY@06 PO Last administered on 02/12/17 06 :06; Admin Dose 40 MG; Start 02/11/17 at 06:00 GERARDO RUTLEDGE February 12, 2017 11:34
[2017-02-12] MEDS: ONDANSETRON 4 MG INJ IV PRN ×2 (14:30→22:06)
--- NOTE | 2017-02-12 14:45 | PN ---
DATE: 02/12/2017 FOLLOWUP EXAM AND PROGRESS NOTE Is status post open cholecystectomy. Postop day #2. SUBJECTIVE: Still complaining of too much pain in the right upper quadrant and the area of the oper ation incision. No vomiting today, ____ nauseous but now does not feel nausea. Tolerated full liqu id diet today. Has walked around. OBJECTIVE: VITAL SIGNS: Temperature 98.4, heart rate 78, respirations 16, blood pressure 110/72, saturation 10 0% on room air. No lab was done today except blood sugar, which is POC 156. ABDOMEN: Soft. EXTREMITIES: Legs, no calf tenderness. SCDs in place. ASSESSMENT AND PLAN: Postoperative day #2, status post open cholecystectomy. Patient has been naus eous and vomited yesterday, but today no nausea, no vomiting. PLAN: 1. Advance diet to 1800 calorie, low fat, low cholesterol diet. 2. Discontinue Tompkins catheter. 3. Encourage out of bed, walking around. Dictated By: JALEEL FIGUEREDO MD PS/SUSAN Conf#: [id number] DID#: [id number]
[2017-02-12 20:18] VITALS: BP 116/72; RESP 16
[2017-02-13] MEDS: HYDROmorphONE 1 MG/ML SYG IV PRN ×7 (01:06→22:02)
[2017-02-13] MEDS: ACCU-CHEK XX SCH (01:55)
[2017-02-13] MEDS: HYDROCODONE/APAP (5/325) TAB PO PRN ×4 (04:20→17:16)
[2017-02-13 05:09] LABS: ADD SCAN DIFF NO
[2017-02-13 05:13] LABS: BASOPHILS % 0.3 % (0.0-2.0); EOSINOPHILS # 0.5 10^3/ul (0.0-0.5); EOSINOPHILS % 5.1 % (0.0-7.0); HEMATOCRIT 41.9 % (37.0-47.0); HEMOGLOBIN 14.2 g/dl (12.0-16.0); LYMPHOCYTES # 3.7 10^3/ul (0.8-2.9); LYMPHOCYTES % 41.4 % (15.0-51.0); MEAN CORPUSCULAR HGB CONC 33.9 g/dl (32.0-37.0); MEAN CORPUSCULAR VOLUME 91.5 fl (82.0-101.0); MEAN PLATELET VOLUME 10.1 fl (7.4-10.4); MONOCYTE # 0.4 10^3/ul (0.3-0.9); MONOCYTES % 4.4 % (0.0-11.0); NEUTROPHIL # 4.4 10^3/ul (1.6-7.5); NEUTROPHILS % 48.6 % (39.0-77.0); PLATELET COUNT 190 10^3/UL (140-415); RED BLOOD COUNT 4.58 10^6/ul (4.20-5.40); RED CELL DISTRIBUTION WIDTH 12.8 % (11.5-14.5)
[2017-02-13 05:43] LABS: POTASSIUM 3.9 mmol/L (3.5-5.1)
[2017-02-13 05:45] LABS: CREATININE 0.51 mg/dl (0.44-1.00)
[2017-02-13 05:46] LABS: CALCIUM 8.8 mg/dl (8.4-10.2)
[2017-02-13] MEDS: PANTOPRAZOLE (EC) 40 MG TAB PO SCH (06:13)
[2017-02-13] MEDS: metFORMIN 500 MG TAB PO SCH ×2 (08:35→17:29)
[2017-02-13] MEDS: INSULIN ASPART [NOVOLOG] 3 ML PEN SC SCH ×4 (08:41→20:47)
--- NOTE | 2017-02-13 08:57 | PN ---
Date/Time of Note Date/Time of Note DATE: 02/13/17 TIME: 08:57 Assessment/Plan VTE Prophylaxis VTE Prophylaxis Intervention: SCD's Lines/Catheters IV Catheter Type (from Nrsg): Saline Lock Urinary Cath still in place: No Assessment/Plan Chief Complaint/Hosp Course s/p open adiel Problems: Assessment/Plan tolerating diet some pain control issues possible dc tomorrow Subjective 24 Hr Interval Summary Free Text/Dictation doing well, tolerating diet, some pain control issues still Exam/Review of Systems Vital Signs Vitals Vital Signs Date Time Temp Pulse Resp B/P Pulse Ox O2 Delivery O2 Flow Rate FiO2 02/12/17 20:18 98.3 83 16 116/72 97 02/10/17 20:55 Nasal Cannula 2.0 Intake and Output 02/12/17 02/12/17 02/13/17 15:00 23:00 07:00 Intake Total 850 ml 600 ml Output Total 800 ml Balance 50 ml 600 ml Exam c/d/i Results Result Diagram: 02/13/17 0445 02/13/17 0435 Results 24 hrs Laboratory Tests Test 02/12/17 11:41 02/12/17 17:15 02/12/17 20:21 02/13/17 04:35 Bedside Glucose 156 135 152 Sodium Level 137 Potassium Level 3.9 Chloride Level 101 Carbon Dioxide Level 27 Anion Gap 13 Blood Urea Nitrogen 8 Creatinine 0.51 Glucose Level 176 Calcium Level 8.8 Test 02/13/17 04:45 02/13/17 08:28 White Blood Count 9.0 Red Blood Count 4.58 Hemoglobin 14.2 Hematocrit 41.9 Mean Corpuscular Volume 91.5 Mean Corpuscular Hemoglobin 31.0 Mean Corpuscular Hemoglobin Concent 33.9 Red Cell Distribution Width 12.8 Platelet Count 190 Mean Platelet Volume 10.1 Neutrophils % 48.6 Lymphocytes % 41.4 Monocytes % 4.4 Eosinophils % 5.1 Basophils % 0.3 Nucleated Red Blood Cells % 0.0 Neutrophils # 4.4 Lymphocytes # 3.7 H Monocytes # 0.4 Eosinophils # 0.5 Basophils # 0.0 Nucleated Red Blood Cells # 0.0 Bedside Glucose 169 Medications Medications Current Medications Acetaminophen/ Hydrocodone Bitart 1 tab 1 tab Q6H PRN PO PAIN LEVEL 6-10 Last administered on 02/13/17t 04:20; Admin Dose 1 TAB; Start 02/10/17 at 14:30 Sodium Chloride (NS) 1,000 ml @ 100 mls/hr Q10H IV Last administered on 12:54; Admin Dose 100 MLS/HR; Start 02/10/17 at 14:03 Hydromorphone HCl (Dilaudid) 1 mg Q3 PRN IV PAIN Last administered on 06:12; Admin Dose 1 MG; Start 02/10/17 at 17:30 Ondansetron HCl (Zofran Inj) 4 mg Q4H PRN IV NAUSEA AND/OR VOMITING Last administered on 02/12/17 22:06; Admin Dose 4 MG; Start 02/10/17 at 18:00 Miscellaneous Information 1 ea NOTE XX ; Start 02/10/17 at 18:00 Glucose (Glutose) 15 gm Q15M PRN PO DECREASED GLUCOSE; Start 02/10/17 at 18:00 Glucose (Glutose) 22.5 gm Q15M PRN PO DECREASED GLUCOSE; Start 02/10/17 at 18: 00 Dextrose (D50w Syringe) 25 ml Q15M PRN IV DECREASED GLUCOSE; Start 02/10/17 at 18:00 Dextrose (D50w Syringe) 50 ml Q15M PRN IV DECREASED GLUCOSE; Start 02/10/17 at 18:00 Glucagon (Glucagen) 1 mg Q15M PRN IM DECREASED GLUCOSE; Start 02/10/17 at 18:00 Glucose (Glutose) 15 gm Q15M PRN BUCCAL DECREASED GLUCOSE; Start 02/10/17 at 18 :00 Diagnostic Test (Pha) (Accu-Chek) 1 ea 02 XX Last administered on 02/12/17 02: 06; Admin Dose 1 EA; Start 02/11/17 at 02:00 Pantoprazole (Protonix Tab) 40 mg DAILY@06 PO Last administered on 02/13/17 06 :13; Admin Dose 40 MG; Start 02/11/17 at 06:00 Taras BLISS February 13, 2017 08:57
[2017-02-13 09:07] VITALS: BP 109/69; RESP 18
[2017-02-13] MEDS: SOD CHLORIDE 0.9% 1,000 ML IV SCH ×2 (12:02→22:02)
[2017-02-13] MEDS ORDERED: HYDROCODONE/APAP (5/325) TAB PO PRN (13:00)
--- NOTE | 2017-02-13 16:47 | PN ---
Date/Time of Note Date/Time of Note DATE: 02/13/17 TIME: 16:43 Assessment/Plan VTE Prophylaxis VTE Prophylaxis Intervention: SCD's Lines/Catheters [facility] Saline Lock Urinary Cath still in place: No Assessment/Plan Assessment/Plan 1. Dilation and stone in the remnant cystic duct after laparoscopic cholecystectomy last year. S/p open cholecystectomy by Dr Urbina. 2. Diabetes mellitus. Continue metformin and NovoLog per mild algorithm sliding scale. Possible DC planning tomorrow Subjective 24 Hr Interval Summary Free Text/Dictation Patient still complains of right upper quadrant pain requiring IV and p.o. pain medications, tolerates diet well, denies nausea vomiting. Exam/Review of Systems Vital Signs Vitals Vital Signs Date Time Temp Pulse Resp B/P Pulse Ox O2 Delivery O2 Flow Rate FiO2 02/13/17 09:07 98.3 79 18 109/69 97 02/10/17 20:55 Nasal Cannula 2.0 Intake and Output 02/12/17 02/12/17 02/13/17 15:00 23:00 07:00 Intake Total 850 ml 600 ml Output Total 800 ml Balance 50 ml 600 ml Exam Constitutional: alert, obese, oriented Psych: no complaints Head: atraumatic, normocephalic Eyes: nl conjunctiva ENMT: nl external ears & nose Neck: non-tender, supple Respiratory: clear to auscultation, normal air movement Cardiovascular: nl pulses, regular rate and rhythm Gastrointestinal: non-tender, other (Right lower quadrant surgical incision intact with delon), soft Genitourinary - Female: nl adnexae Musculoskeletal: nl extremities to inspection Extremities: normal pulses Neurological: [employer] II-XII intact Skin: nl turgor Results Result Diagram: 02/13/17 0445 02/13/17 0435 Results 24 hrs Laboratory Tests Test 02/12/17 17:15 02/12/17 20:21 02/13/17 04:35 02/13/17 04:45 Bedside Glucose 135 152 Sodium Level 137 Potassium Level 3.9 Chloride Level 101 Carbon Dioxide Level 27 Anion Gap 13 Blood Urea Nitrogen 8 Creatinine 0.51 Glucose Level 176 Calcium Level 8.8 White Blood Count 9.0 Red Blood Count 4.58 Hemoglobin 14.2 Hematocrit 41.9 Mean Corpuscular Volume 91.5 Mean Corpuscular Hemoglobin 31.0 Mean Corpuscular Hemoglobin Concent 33.9 Red Cell Distribution Width 12.8 Platelet Count 190 Mean Platelet Volume 10.1 Neutrophils % 48.6 Lymphocytes % 41.4 Monocytes % 4.4 Eosinophils % 5.1 Basophils % 0.3 Nucleated Red Blood Cells % 0.0 Neutrophils # 4.4 Lymphocytes # 3.7 H Monocytes # 0.4 Eosinophils # 0.5 Basophils # 0.0 Nucleated Red Blood Cells # 0.0 Test 02/13/17 08:28 02/13/17 12:14 Bedside Glucose 169 169 Medications Medications Current Medications Sodium Chloride (NS) 1,000 ml @ 100 mls/hr Q10H IV Last administered on 12:54; Admin Dose 100 MLS/HR; Start 02/10/17 at 14:03 Hydromorphone HCl (Dilaudid) 1 mg Q3 PRN IV PAIN Last administered on 15:11; Admin Dose 1 MG; Start 02/10/17 at 17:30 Ondansetron HCl (Zofran Inj) 4 mg Q4H PRN IV NAUSEA AND/OR VOMITING Last administered on 02/12/17 22:06; Admin Dose 4 MG; Start 02/10/17 at 18:00 Miscellaneous Information 1 ea NOTE XX ; Start 02/10/17 at 18:00 Glucose (Glutose) 15 gm Q15M PRN PO DECREASED GLUCOSE; Start 02/10/17 at 18:00 Glucose (Glutose) 22.5 gm Q15M PRN PO DECREASED GLUCOSE; Start 02/10/17 at 18: 00 Dextrose (D50w Syringe) 25 ml Q15M PRN IV DECREASED GLUCOSE; Start 02/10/17 at 18:00 Dextrose (D50w Syringe) 50 ml Q15M PRN IV DECREASED GLUCOSE; Start 02/10/17 at 18:00 Glucagon (Glucagen) 1 mg Q15M PRN IM DECREASED GLUCOSE; Start 02/10/17 at 18:00 Glucose (Glutose) 15 gm Q15M PRN BUCCAL DECREASED GLUCOSE; Start 02/10/17 at 18 :00 Diagnostic Test (Pha) (Accu-Chek) 1 ea 02 XX Last administered on 02/12/17 02: 06; Admin Dose 1 EA; Start 02/11/17 at 02:00 Pantoprazole (Protonix Tab) 40 mg DAILY@06 PO Last administered on 02/13/17 06 :13; Admin Dose 40 MG; Start 02/11/17 at 06:00 Acetaminophen/ Hydrocodone Bitart (Pomerene (5/325)) 1 tab Q4 PRN PO PAIN LEVEL 1- 5; Start 02/13/17 at 13:00 Acetaminophen/ Hydrocodone Bitart (Pomerene (5/325)) 2 tab Q4H PRN PO PAIN LEVEL 6 -10 Last administered on 02/13/17 13:20; Admin Dose 2 TAB; Start 02/13/17 at 12 :30 ARTURO MATTHEWS February 13, 2017 16:47
[2017-02-13 19:47] VITALS: BP 110/78; RESP 16
[2017-02-14] MEDS: HYDROCODONE/APAP (5/325) TAB PO PRN ×4 (01:30→13:25)
[2017-02-14] MEDS: ACCU-CHEK XX SCH (02:00)
[2017-02-14] MEDS: HYDROmorphONE 1 MG/ML SYG IV PRN (04:31)
[2017-02-14] MEDS: PANTOPRAZOLE (EC) 40 MG TAB PO SCH (05:57)
[2017-02-14] MEDS: INSULIN ASPART [NOVOLOG] 3 ML PEN SC SCH ×2 (07:50→12:08)
[2017-02-14] MEDS: SOD CHLORIDE 0.9% 1,000 ML IV SCH (07:54)
[2017-02-14 08:10] VITALS: BP 115/75; RESP 18
[2017-02-14] MEDS: metFORMIN 500 MG TAB PO SCH (08:27)
--- NOTE | 2017-02-14 14:16 | PN ---
Date/Time of Note Date/Time of Note DATE: 02/14/17 TIME: 14:15 Assessment/Plan VTE Prophylaxis VTE Prophylaxis Intervention: SCD's Lines/Catheters IV Catheter Type (from Nrs): Saline Lock Urinary Cath still in place: No Assessment/Plan Chief Complaint/Hosp Course s/p open adiel Problems: Assessment/Plan tolerating diet adequate pain control dc home Subjective 24 Hr Interval Summary Free Text/Dictation doing well tolerating diet Exam/Review of Systems Vital Signs Vitals Vital Signs Date Time Temp Pulse Resp B/P Pulse Ox O2 Delivery O2 Flow Rate FiO2 02/14/17 08:10 98.4 76 18 115/75 98 02/10/17 20:55 Nasal Cannula 2.0 Intake and Output 02/13/17 02/13/17 02/14/17 15:00 23:00 07:00 Intake Total 960 ml 800 ml Balance 960 ml 800 ml Exam no issues Results Result Diagram: 02/13/17 0445 02/13/17 0435 Results 24 hrs Laboratory Tests Test 02/13/17 17:15 02/13/17 20:46 02/14/17 08:27 02/14/17 12:01 Bedside Glucose 214 160 140 236 H Medications Medications Current Medications Sodium Chloride (NS) 1,000 ml @ 100 mls/hr Q10H IV Last administered on 12:54; Admin Dose 100 MLS/HR; Start 02/10/17 at 14:03 Hydromorphone HCl (Dilaudid) 1 mg Q3 PRN IV PAIN Last administered on 04:31; Admin Dose 1 MG; Start 02/10/17 at 17:30 Ondansetron HCl (Zofran Inj) 4 mg Q4H PRN IV NAUSEA AND/OR VOMITING Last administered on 02/12/17 22:06; Admin Dose 4 MG; Start 02/10/17 at 18:00 Miscellaneous Information 1 ea NOTE XX ; Start 02/10/17 at 18:00 Glucose (Glutose) 15 gm Q15M PRN PO DECREASED GLUCOSE; Start 02/10/17 at 18:00 Glucose (Glutose) 22.5 gm Q15M PRN PO DECREASED GLUCOSE; Start 02/10/17 at 18: 00 Dextrose (D50w Syringe) 25 ml Q15M PRN IV DECREASED GLUCOSE; Start 02/10/17 at 18:00 Dextrose (D50w Syringe) 50 ml Q15M PRN IV DECREASED GLUCOSE; Start 02/10/17 at 18:00 Glucagon (Glucagen) 1 mg Q15M PRN IM DECREASED GLUCOSE; Start 02/10/17 at 18:00 Glucose (Glutose) 15 gm Q15M PRN BUCCAL DECREASED GLUCOSE; Start 02/10/17 at 18 :00 Diagnostic Test (Pha) (Accu-Chek) 1 ea 02 XX Last administered on 02/12/17 02: 06; Admin Dose 1 EA; Start 02/11/17 at 02:00 Pantoprazole (Protonix Tab) 40 mg DAILY@06 PO Last administered on 02/14/17 05 :57; Admin Dose 40 MG; Start 02/11/17 at 06:00 Acetaminophen/ Hydrocodone Bitart (Perkins (5/325)) 1 tab Q4 PRN PO PAIN LEVEL 1- 5; Start 02/13/17 at 13:00 Acetaminophen/ Hydrocodone Bitart (Perkins (5/325)) 2 tab Q4H PRN PO PAIN LEVEL 6 -10 Last administered on 02/14/17 13:25; Admin Dose 2 TAB; Start 02/13/17 at 12 :30 Taras BLISS February 14, 2017 14:16
[2017-02-14] MEDS ORDERED: HYDR-906 PO (15:25)
--- NOTE | 2017-02-16 06:18 | DS ---
DATE OF ADMISSION: 02/10/2017 DATE OF DISCHARGE: 02/14/2017 FINAL DIAGNOSES: 1. Dilation and stone in the remnant cystic duct after laparoscopic cholecystectomy last year, stat us post open cholecystectomy. 2. Diabetes mellitus. BRIEF HISTORY: The patient is a 36-year-old female with a history of diabetes. The patient underwen t a laparoscopic cystectomy in January of 2016; however, the patient continued to have symptoms and fu rther imaging revealed cystic duct calcification and cystic duct stone. The patient was brought to the hospital and underwent an open cholecystectomy and cystic duct resection for definitive manageme nt. The patient did have significant postoperative pain and the patient is being admitted for [facility] evaluation and management. HOSPITAL COURSE: The patient was given Zofran for nausea. The patient was given Dilaudid p.r.n. fo r pain. The patient was started on a clear liquid diet, which was gradually advanced to a regular d iet. The patient's condition gradually improved. The patient was able to ambulate in the hallway, pain was well controlled, the patient tolerated her diet well and the patient was discharged home. CONDITION ON DISCHARGE: Hemodynamically stable. ACTIVITY: As patient tolerates. There is no lifting of more than 25 pounds for 6 weeks. DISCHARGE DIET: 1800 ADA diet. DISCHARGE MEDICATIONS: 1. The patient was given a prescription for [place]. 2. The patient is to continue on her home medications of Metformin. 3. [place] 3 fatty acids fish oil. 4. Omeprazole. The patient was instructed to follow up with Dr. Urbina in a postoperative appointment in 2 weeks. Interdisciplinary plan of care was established for this patient. Plan of care was discussed with Dr Shaila Reza. Dictated By: ARTURO MATTHEWS BUSINESS SALES CONSULTANT for NIKOS REZA MD SR/NTS Conf#: [id number] DID#: [id number]
== END 2017-02-14 16:00 | disposition home or self-care (01) | DRG 983 ==
LOC: REC 09:14 → MS1 15:08
PROVIDERS: ADMIT Internal Medicine; ATTEND Surgery
PROC: 0FB Hepatobiliary System and Pancreas, Excision (ICD-10-PCS; principal; 2017-02-13)
DX: K91.86 Retained cholelithiasis following cholecystectomy (principal); E11.9 Type 2 diabetes mellitus without complications
CPT/HCPCS: 80048; 80053; 82962; 84703; 85025; 85610; 85730; 87086; 88304; J0131; J0690; J1100; J1170; J1815; J1885; J2175; J2270; J2405; J2710; J3010; J7030

== ENCOUNTER 2017-03-02 19:17 | Emergency (ER) | payer OTHER ==
[~2017-03-02] VITALS: Ht 160 cm; Wt 91.5 kg
[~2017-03-02 19:17] MED LIST changes: -ACETAMINOPHEN 1000 MG/100 ML IVPB ONE; -DICY10CA60 PO; -GLIP2.5T14 PO; -HYDR-762 PO; -IBUP-1542 PO; -IBUP800T25 PO; +METF500T4 PO; -NITR-58 PO; +OMEG1CAP90 PO; -ONDA4TAB14 PO; -ONDA4TAB35 PO; -ONDA4TAB8 PO
[2017-03-02 19:30] VITALS: Ht 160 cm; Wt 91.5 kg
[2017-03-02] MEDS ORDERED: morphine 4 MG/ML VIAL IV STA (21:20)
[2017-03-02] MEDS ORDERED: ONDANSETRON 4 MG INJ IV STA (21:20)
[2017-03-02] MEDS ORDERED: SOD CHLORIDE 0.9% 1,000 ML IV STA (21:20)
--- NOTE | 2017-03-02 21:52 | RADRPT ---
PROCEDURE: US Abdomen. CLINICAL INDICATION: abdominal pain TECHNIQUE: Multiple real-time images were acquired of the patient's right upper quadrant abdomen a nd retroperitoneum utilizing a high resolution transducer. COMPARISON: 02/03/2017 FINDINGS: The liver demonstrates increased echogenicity. The liver is slightly enlarged in size and no focal solid lesions are seen. The liver is slightly nodular in contour. The liver measures 18.4 cm in isaac th. The portal vein is patent with normal direction of flow. No intrahepatic biliary dilatation is seen. The patient is status post cholecystectomy. The common bile duct measures 5 mm in maximal dimension . The visualized portions of the pancreas are unremarkable. The tail of the pancreas is not seen. No free fluid is identified. The right kidney is normal in size, and demonstrate normal echogenicity and cortical thickness. The right kidney measures 11.5 cm in long dimension. There is no evidence of hydronephrosis. There are no kidney stones. RPTAT: AA IMPRESSION: Hepatomegaly with diffuse fatty infiltration of the liver. Status post cholecystectomy. .Travon Dexter MD, Date Time Electronically viewed and signed by .Travon Dexter MD, on 03/02/2017 21:52 .S/
[2017-03-02 21:55] LABS: ADD SCAN DIFF NO
[2017-03-02 22:06] LABS: BASOPHILS % 0.2 % (0.0-2.0); EOSINOPHILS # 0.7 10^3/ul (0.0-0.5); EOSINOPHILS % 5.3 % (0.0-7.0); HEMATOCRIT 49.3 % (37.0-47.0); HEMOGLOBIN 17.1 g/dl (12.0-16.0); LYMPHOCYTES # 2.9 10^3/ul (0.8-2.9); MEAN CORPUSCULAR HGB CONC 34.7 g/dl (32.0-37.0); MEAN CORPUSCULAR VOLUME 89.5 fl (82.0-101.0); MEAN PLATELET VOLUME 10.1 fl (7.4-10.4); MONOCYTE # 0.4 10^3/ul (0.3-0.9); MONOCYTES % 2.9 % (0.0-11.0); NEUTROPHIL # 8.2 10^3/ul (1.6-7.5); NEUTROPHILS % 67.2 % (39.0-77.0); PLATELET COUNT 248 10^3/UL (140-415); RED BLOOD COUNT 5.51 10^6/ul (4.20-5.40); RED CELL DISTRIBUTION WIDTH 12.7 % (11.5-14.5); WHITE BLOOD COUNT 12.2 10^3/ul (4.8-10.8)
[2017-03-02 22:07] LABS: ADD UMIC YES; URINE BILIRUBIN (Dip) 1+ (NEGATIVE); URINE BLOOD (Dip) NEGATIVE (NEGATIVE); URINE COLOR YELLOW (YELLOW); URINE GLUCOSE (Dip) >=1000 % (NEGATIVE); URINE KETONES (Dip) TRACE (NEGATIVE); URINE LEUKOCYTE ESTERASE (Dip) NEGATIVE (NEGATIVE); URINE NITRITE (Dip) NEGATIVE (NEGATIVE); URINE TOTAL PROTEIN (Dip) TRACE (NEGATIVE); URINE UROBILINOGEN (Dip) 0.2 E.U./dL (0.1-1.0)
[2017-03-02 22:28] LABS: ALBUMIN 5.1 g/dl (3.3-4.9); ALBUMIN/GLOBULIN RATIO 1.59; BACTERIA,URINE FEW; BILIRUBIN,INDIRECT 0.9 mg/dl (0-1.1); BILIRUBIN,TOTAL 0.9 mg/dl (0.2-1.3); CALCIUM 9.6 mg/dl (8.4-10.2); CREATININE 0.52 mg/dl (0.44-1.00); ICTOTEST NEGATIVE (NEGATIVE); POTASSIUM 3.9 mmol/L (3.5-5.1); SQUAMOUS EPITHELIAL CELL,UR MANY; TOTAL PROTEIN 8.3 g/dl (6.1-8.1); URINE RBCS NONE SEEN /HPF (0)
[2017-03-02] MEDS ORDERED: FAMOTIDINE 20 MG INJ IV ONE (23:00)
[2017-03-02] MEDS ORDERED: DICYCLOMINE 10 MG CAP PO ONE (23:00)
[2017-03-02] MEDS ORDERED: SOD CHLORIDE 0.9% 100 ML ONE (23:35)
[2017-03-02] MEDS ORDERED: IOHEXOL 300MG/ML 150 ML BTL ONE (23:35)
[2017-03-02] MEDS ORDERED: HYDROmorphONE 1 MG/ML SYG IV STA (23:43)
--- NOTE | 2017-03-03 00:47 | RADRPT ---
PROCEDURE: CT ABDOMEN/PELVIS WITH CONTRAST CLINICAL INDICATION: 36-year-old female with abdominal pain. TECHNIQUE: The study was performed utilizing a [employer] VCT 64-slice CT scanner. Direct axia l sections were obtained through the abdomen and pelvis with the use of 100 cc of Omnipaque-300 maia onic intravenous contrast material. Sagittal and coronal reformations were obtained. One or more of the following dose reduction techniques were utilized: automated exposure control, adjustment of the mA and/or kV according to patient's size or use of iterative reconstruction technique. The images were reviewed on a PACS workstation. CTD/vol = 21.9 mGy; Total Exam DLP = 1354.1 mGy-cm. COMPARISON: CT abdomen/pelvis December 19, 2015; right upper quadrant ultrasound March 02, 2017; right upper quadrant ultrasound February 03, 2017; right upper quadrant ultrasound January 16, 2017. FINDINGS: There is trace right basilar subsegmental atelectasis. There is no evidence for significant pleural effusion. The liver has a normal contour and is enlarged measuring up to 29.7 cm in maximal length . There is marked diffuse decreased density throughout the liver consistent with fatty infiltration with probable area of fatty sparing within the falciform ligament region. No intrahepatic nor extra hepatic biliary ductal dilatation is seen. There is incisional scarring within the right upper quadr ant soft tissues. There are small radiopaque densities within the gallbladder fossa region which ma y represent surgical clips however small calcified stones cannot be totally excluded. Proximal to t his there is a ovoid hyperdense focus within the gallbladder fossa region measuring 2.3 x 1.3 x 1.7 cm. A biloma could have this appearance. The common hepatic duct is enlarged measuring approximatel y 9.6 mm. The distal common bile duct measures approximately 5.5 mm. The pancreas is without areas of abnormal attenuation or contrast enhancement. This spleen is mildly enlarged measuring 14.4 cm i n maximal length but without abnormal density or contrast enhancement. The adrenal glands are unrema rkable. The kidneys are functional bilaterally without abnormal density. No hydroureteronephrosis no r nephroureterolithiasis is evident. The urinary bladder contains urine. There is a mid abdominal ve ntral hernia extending into the umbilical region with opening of 8.7 x 4.0 cm containing fat and sim ilar in appearance to the patient's prior study. There is mild fluid identified throughout the small bowel without obstruction. This may represent an ileus or enteritis. The appendix is visualized a nd is without edema or surrounding inflammatory reaction. The uterus is prominent measuring approxim ately 8.8 x 6.1 x 6.7 cm. There is a right ovarian cyst measuring approximately 1.6 x 2.0 x 2.0 cm. There is no significant pelvic free fluid. The aortoiliac vessels are without aneurysmal dilatation. The osseous structures are intact. IMPRESSION: 1. Hepatomegaly with diffuse fatty infiltration. 2. Status post cholecystectomy with prominent common hepatic duct and small radiopaque densities in the gallbladder fossa which may represent surgical clips however calcified stones cannot be exclude d. In addition, there is an ovoid hypodense focus within the gallbladder fossa. A biloma or resolv ing postoperative hematoma could have this appearance. 3. Mild splenomegaly. 4. Mid abdominal ventral hernia containing fat without interval change. 5. Mild fluid throughout the small bowel without obstruction which may represent an enteritis or il eus. 6. No CT evidence for appendicitis. 7. Prominent uterus without interval change. 8. Right ovarian cyst. .Carroll Parada MD, MD Date Time Electronically viewed and signed by .Carroll Parada MD, on 03/03/2017 00:46 .M/
[2017-03-03] MEDS ORDERED: ONDA4TAB14 PO (02:20)
[2017-03-03] MEDS ORDERED: HYDR-906 PO (02:20)
[2017-03-03 02:34] VITALS: BP 123/70; PULSE 106; RESP 18; TEMP 99.5
--- NOTE | 2017-03-03 02:37 | ERD ---
ER Documentation Chief Complaint Date/Time DATE: 03/03/17 TIME: 02:34 Chief Complaint Upper abd pain c/o n/v/d HPI 36-year-old female patient with a past medical history of cholecystectomy, status post cystic duct remnant resection presents the ED complaining of upper abdominal pain and right lower quadrant pain that started earlier this morning. Reports that it is a sharp pain and rates it a 8 out of 10. States that he has sharp pain. States that she had the procedure done by Dr. Urbina on February 15, 2017. States that patient had some vomiting and diarrhea and reports that her son also has similar symptoms. Denies any chest pain, fever, chills shortness of breath, wheezing, cough, dysuria, urgency, frequency, flank pain. ROS All systems reviewed and are negative except as per history of present illness. Medications Home Meds Active Scripts Ondansetron (Ondansetron Odt) 4 Mg Tab.rapdis, 4 MG PO Q6H Y for NAUSEA AND/OR VOMITING, #10 TAB Prov:SERENA MARINA PA-C 03/03/17 Hydrocodone/Acetaminophen ([place] 5-325 Tablet) 1 Each Tablet, 1 TAB PO Q6H Y for PAIN, #7 TAB Prov:SERENA MARINA PA-C 03/03/17 Hydrocodone/Acetaminophen ([place] 5-325 Tablet) 1 Each Tablet, 1 TAB PO Q6H Y for PAIN, #30 TAB Prov:ARTURO MATTHEWS 02/14/17 Reported Medications [place]-3 Fatty Acids/Fish Oil ([place] 3 1,000 mg Softgel) 1 Each Capsule, 2 EACH PO BID, CAP 02/10/17 Metformin Hcl* (Metformin Hcl*) 500 Mg Tablet, 500 MG PO WITH BREAKFAST DINNE, # 30 TAB 02/10/17 Omeprazole* (Omeprazole*) 40 Mg Capsule.dr, 40 MG PO DAILY, #30 CAP 01/06/16 Allergies Allergies: Coded Allergies: piperacillin (Verified Allergy, Unknown, 02/03/17) tazobactam (Verified Allergy, Unknown, 02/03/17) PMhx/Soc History of Surgery: Yes (LAPAROTOMY,C SECTION, CHOLECYSTECTOMY,SEPTOPLASTY X2) Anesthesia Reaction: Yes (DIFFICULTY WAKING UP) Hx Neurological Disorder: No Hx Respiratory Disorders: No Hx Cardiac Disorders: No Hx Psychiatric Problems: No Hx Miscellaneous Medical Probl: No Hx Alcohol Use: Yes (SOCIALLY) Hx Substance Use: No Hx Tobacco Use: No Smoking Status: Never smoker Physical Exam Vitals Vital Signs Date Time Temp Pulse Resp B/P Pulse Ox O2 Delivery O2 Flow Rate FiO2 03/03/17 02:34 99.5 106 18 123/70 96 Room Air 03/02/17 19:30 98.1 104 24 134/90 97 Physical Exam Const: Eac-tpv-gnorharoq, well-nourished. In no acute distress. Head: Atraumatic, normocephalic Eyes: Normal Conjunctiva without injection. No purulent discharge. ENT: Normal external ear, nose. Moist oropharynx without tonsillar exudates. Non -erythematous pharynx. Uvula midline. No drooling. No trismus. Neck: No cervical midline tenderness. Full range of motion. No meningismus. No cervical lymphadenopathy. No JVD. Resp: Clear to auscultation bilaterally. No wheezing, rhonchi, rales, or crackles. No accessory muscle use. No retractions. Cardio: Regular rate and rhythm. No murmurs, rubs or gallops. Abd: Soft, nontender, non distended. Normal bowel sounds. No palpable masses. No rebound tenderness. No guarding. Negative McBurney's point. Negative psoas sign. Negative obturator sign. Skin: No petechiae or rashes Back: No midline tenderness. No CVA tenderness. Ext: No cyanosis, or edema. Neur: Awake and alert. Normal gait. Normal coordination. Psych: Normal Mood and Affect Result Diagram: 03/02/17214203/02/172142 Results 24 hrs Laboratory Tests Test 03/02/17 21:43 White Blood Count 12.210^3/ul Red Blood Count 5.5110^6/ul Hemoglobin 17.1g/dl Hematocrit 49.3% Mean Corpuscular Volume 89.5fl Mean Corpuscular Hemoglobin 31.0pg Mean Corpuscular Hemoglobin Concent 34.7g/dl Red Cell Distribution Width 12.7% Platelet Count 78217^3/UL Mean Platelet Volume 10.1fl Neutrophils % 67.2% Lymphocytes % 24.0% Monocytes % 2.9% Eosinophils % 5.3% Basophils % 0.2% Nucleated Red Blood Cells % 0.0/100WBC Neutrophils # 8.210^3/ul Lymphocytes # 2.910^3/ul Monocytes # 0.410^3/ul Eosinophils # 0.710^3/ul Basophils # 0.010^3/ul Nucleated Red Blood Cells # 0.010^3/ul Urine Color YELLOW Urine Clarity SLIGHTLY CLOUDY Urine pH 5.5 Urine Specific Cassel 1.025 Urine Ketones TRACE Urine Nitrite NEGATIVE Urine Bilirubin 1+ Urine Ictotest NEGATIVE Urine Urobilinogen 0.2 E.U./dL Urine Leukocyte Esterase NEGATIVE Urine Microscopic RBC NONE SEEN/HPF Urine Microscopic WBC 2-5/HPF Urine Squamous Epithelial Cells MANY Urine Bacteria FEW Urine Yeast FEW Urine Hemoglobin NEGATIVE Urine Glucose >=1000% Urine Total Protein TRACE Sodium Level 142mmol/L Potassium Level 3.9mmol/L Chloride Level 104mmol/L Carbon Dioxide Level 26mmol/L Anion Gap 16 Blood Urea Nitrogen 16mg/dl Creatinine 0.52mg/dl Glucose Level 264mg/dl Calcium Level 9.6mg/dl Total Bilirubin 0.9mg/dl Direct Bilirubin 0.00mg/dl Indirect Bilirubin 0.9mg/dl Aspartate Amino Transf (AST/SGOT) 28IU/L Alanine Aminotransferase (ALT/SGPT) 46IU/L Alkaline Phosphatase 89IU/L Total Protein 8.3g/dl Albumin 5.1g/dl Globulin 3.20g/dl Albumin/Globulin Ratio 1.59 Lipase 124U/L Current Medications Medications (Trade) Dose Ordered Sig/Yinka Route PRN Reason Start Time Stop Time Status Last Admin Dose Admin Sodium Chloride (NS) 1,000 ml @ 1,000 mls/hr Q1H STAT IV 03/02/17 21:20 03/02/17 22:19 DC 03/02/17 21:51 Ondansetron HCl (Zofran Inj) 4 mg ONCE STAT IV 03/02/17 21:20 03/02/17 21:22 DC 03/02/17 21:51 Morphine Sulfate (morphine) 4 mg ONCE STAT IV 03/02/17 21:20 03/02/17 21:22 DC 03/02/17 21:51 Famotidine (Pepcid Iv) 20 mg ONCE ONCE IV 03/02/17 23:00 03/02/17 23:01 DC 03/02/17 23:10 Dicyclomine HCl 10 mg 10 mg ONCE ONCE PO 03/02/17 23:00 03/02/17 23:01 DC 03/02/17 23:10 Sodium Chloride (NS) 100 ml @ ud STK-MED ONCE .ROUTE 03/02/17 23:35 03/02/17 23:36 DC 03/02/17 23:56 Iohexol (Omnipaque 300mg/ ml) 150 ml STK-MED ONCE .ROUTE 03/02/17 23:35 03/02/17 23:36 DC 03/02/17 23:55 Hydromorphone HCl (Dilaudid) 0.5 mg ONCE STAT IV 03/02/17 23:43 03/02/17 23:44 DC 03/03/17 00:35 Procedures/MDM This is a 36-year-old female patient with a past medical history of status post cholecystectomy and cystic duct remnant resection presents to the ED complaining of epigastric and right lower quadrant abdominal pain. Patient also has associated nausea vomiting and diarrhea. Patient is afebrile and nontoxic-appearing. Patient has normal vital signs. Patient was further worked up with CBC, CMP, lipase, UA, urine , ultrasound of the gallbladder, CT of the abdomen and pelvis with contrast. Patient's pain and symptoms have improved after treatment with 4 mg IV Zofran, 4 mg IV morphine, 0.5 mg IV Dilaudid. CBC: No leukocytosis. No e/o of systemic infection. No e/o anemia. CMP: No e/o severe acidosis, alkalosis, renal failure, diabetic ketoacidosis, liver disease Lipase within normal limits. Urine: No leukocyte esterase, no nitrites, no hematuria. Urine : Negative PROCEDURE: CT ABDOMEN/PELVIS WITH CONTRAST CLINICAL INDICATION: 36-year-old female with abdominal pain. TECHNIQUE: The study was performed utilizing a [employer] VCT 64-slice CT scanner. Direct axial sections were obtained through the abdomen and pelvis with the use of 100 cc of Omnipaque-300 nonionic intravenous contrast material. Sagittal and coronal reformations were obtained. One or more of the following dose reduction techniques were utilized: automated exposure control, adjustment of the mA and/or kV according to patient's size or use of iterative reconstruction technique. The images were reviewed on a PACS workstation. CTD/ vol = 21.9 mGy; Total Exam DLP = 1354.1 mGy-cm. COMPARISON: CT abdomen/pelvis December 19, 2015; right upper quadrant ultrasound March 02, 2017; right upper quadrant ultrasound February 03, 2017; right upper quadrant ultrasound January 16, 2017. FINDINGS: There is trace right basilar subsegmental atelectasis. There is no evidence for significant pleural effusion. The liver has a normal contour and is enlarged measuring up to 29.7 cm in maximal length. There is marked diffuse decreased density throughout the liver consistent with fatty infiltration with probable area of fatty sparing within the falciform ligament region. No intrahepatic nor extrahepatic biliary ductal dilatation is seen. There is incisional scarring within the right upper quadrant soft tissues. There are small radiopaque densities within the gallbladder fossa region which may represent surgical clips however small calcified stones cannot be totally excluded. Proximal to this there is a ovoid hyperdense focus within the gallbladder fossa region measuring 2.3 x 1.3 x 1.7 cm. A biloma could have this appearance. The common hepatic duct is enlarged measuring approximately 9.6 mm. The distal common bile duct measures approximately 5.5 mm. The pancreas is without areas of abnormal attenuation or contrast enhancement. This spleen is mildly enlarged measuring 14.4 cm in maximal length but without abnormal density or contrast enhancement. The adrenal glands are unremarkable. The kidneys are functional bilaterally without abnormal density. No hydroureteronephrosis nor nephroureterolithiasis is evident. The urinary bladder contains urine. There is a mid abdominal ventral hernia extending into the umbilical region with opening of 8.7 x 4.0 cm containing fat and similar in appearance to the patient's prior study. There is mild fluid identified throughout the small bowel without obstruction. This may represent an ileus or enteritis. The appendix is visualized and is without edema or surrounding inflammatory reaction. The uterus is prominent measuring approximately 8.8 x 6.1 x 6.7 cm. There is a right ovarian cyst measuring approximately 1.6 x 2.0 x 2.0 cm. There is no significant pelvic free fluid. The aortoiliac vessels are without aneurysmal dilatation. The osseous structures are intact. IMPRESSION: 1. Hepatomegaly with diffuse fatty infiltration. 2. Status post cholecystectomy with prominent common hepatic duct and small radiopaque densities in the gallbladder fossa which may represent surgical clips however calcified stones cannot be excluded. In addition, there is an ovoid hypodense focus within the gallbladder fossa. A biloma or resolving postoperative hematoma could have this appearance. 3. Mild splenomegaly. 4. Mid abdominal ventral hernia containing fat without interval change. 5. Mild fluid throughout the small bowel without obstruction which may represent an enteritis or ileus. 6. No CT evidence for appendicitis. 7. Prominent uterus without interval change. 8. Right ovarian cyst. PROCEDURE: US Abdomen. CLINICAL INDICATION: abdominal pain TECHNIQUE: Multiple real-time images were acquired of the patient's right upper quadrant abdomen and retroperitoneum utilizing a high resolution transducer. COMPARISON: 02/03/2017 FINDINGS: The liver demonstrates increased echogenicity. The liver is slightly enlarged in size and no focal solid lesions are seen. The liver is slightly nodular in contour. The liver measures 18.4 cm in length. The portal vein is patent with normal direction of flow. No intrahepatic biliary dilatation is seen. The patient is status post cholecystectomy. The common bile duct measures 5 mm in maximal dimension. The visualized portions of the pancreas are unremarkable. The tail of the pancreas is not seen. No free fluid is identified. The right kidney is normal in size, and demonstrate normal echogenicity and cortical thickness. The right kidney measures 11.5 cm in long dimension. There is no evidence of hydronephrosis. There are no kidney stones. RPTAT: AA IMPRESSION: Hepatomegaly with diffuse fatty infiltration of the liver. Status post cholecystectomy. Patient could likely have symptoms due to viral etiology since her son has similar symptoms. Low suspicion for post op complication, gastritis, GERD, peptic ulcer disease, cholecystitis, choledocholithiasis, cholangitis, pancreatitis, appendicitis, bowel obstruction, ileus, volvulus, nephrolithiasis , pyelonephritis, hepatitis, perforated viscus, diverticulitis, abdominal hernia , acute abdomen, mesenteric ischemia or other emergent conditions. Discharge medications: Lorena Miller Follow up with primary care physician in 1-2 days for referral to international logistics coordinator. Instructed patient to return to the ED sooner for any worsening symptoms. Patient's questions were answered. Patient understood and agreed with discharge plan. Patient discharged stable. Departure Diagnosis: Primary Impression: Abdominal pain Abdominal location: unspecified location Qualified Code: R10.9 - Abdominal pain, unspecified location Additional Impression: Vomiting and diarrhea Condition: Stable Patient Instructions: Abdominal Pain, Self-Care for Vomiting and Diarrhea, Hernia (Inguinal, Ventral, Umbilical), Gastroenteritis, Viral (6Y-Adult) Referrals: COMMUNITY CLINICS YOU HAVE RECEIVED A MEDICAL SCREENING EXAM AND THE RESULTS INDICATE THAT YOU DO NOT HAVE A CONDITION THAT REQUIRES URGENT TREATMENT IN THE EMERGENCY DEPARTMENT. FURTHER EVALUATION AND TREATMENT OF YOUR CONDITION CAN WAIT UNTIL YOU ARE SEEN IN YOUR DOCTORS OFFICE WITHIN THE NEXT 1-2 DAYS. IT IS YOUR RESPONSIBILITY TO MAKE AN APPOINTMENT FOR FOLOW-UP CARE. IF YOU HAVE A PRIMARY DOCTOR --you should call your primary doctor and schedule an appointment IF YOU DO NOT HAVE A PRIMARY DOCTOR YOU CAN CALL OUR PHYSICIAN REFERRAL HOTLINE AT IF YOU CAN NOT AFFORD TO SEE A PHYSICIAN YOU CAN CHOSE FROM THE FOLLOWING [facility] [address] [facility]. [facility] [address] [facility]. [facility] [address] [facility] [address] [facility]. [facility] [address] [facility]. [facility] [address] [facility] YOU HAVE RECEIVED A MEDICAL SCREENING EXAM AND THE RESULTS INDICATE THAT YOU DO NOT HAVE A CONDITION THAT REQUIRES URGENT TREATMENT IN THE EMERGENCY DEPARTMENT. FURTHER EVALUATION AND TREATMENT OF YOUR CONDITION CAN WAIT UNTIL YOU ARE SEEN IN YOUR DOCTORS OFFICE WITHIN THE NEXT 1-2 DAYS. IT IS YOUR RESPONSIBILITY TO MAKE AN APPOINTMENT FOR FOLOW-UP CARE. IF YOU HAVE A PRIMARY DOCTOR --you should call your primary doctor and schedule and appointment IF YOU DO NOT HAVE A PRIMARY DOCTOR YOU CAN CALL OUR PHYSICIAN REFERRAL HOTLINE AT . IF YOU CAN NOT AFFORD TO SEE A PHYSICIAN YOU CAN CHOSE FROM THE FOLLOWING [facility] INSTITUTIONS: [facility] [address] [place] [address] [facility] [address] [place] [address] [facility] + [facility] [address] [place] [address] [facility]ENT [facility]/SPECIALTIES Additional Instructions: Call your primary care doctor for an appointment during the next 2-3 days for a referral to see a international logistics coordinator.See the doctor sooner or return here if your condition worsens before your appointment time. SERENA MARINA PA-C Mar 03, 2017 02:37
== END 2017-03-03 02:36 | disposition home or self-care (01) ==
LOC: FTE 19:17
DX: R10.13 Epigastric pain (principal); R11.10 Vomiting, unspecified; R19.7 Diarrhea, unspecified
CPT/HCPCS: 74177; 76705; 80053; 81001; 83690; 85025; J1170; J2270; J2405; J7030; Q9967; Z7610; 36415; 96374; 96375

== ENCOUNTER 2017-05-04 08:41 | Day surgery (SDC) | payer OTHER ==
[2017-05-03 17:18] VITALS: BMI 35.9
[2017-05-04] VITALS (18 sets, daily range): BP systolic 116–152; BP diastolic 61–84; PULSE 80–88; RESP 11–38; Ht 160 cm; Wt 94.0 kg
[~2017-05-04] VITALS: Ht 160 cm; Wt 94.0 kg
[~2017-05-04 08:41] MED LIST changes: +CLINDAMYCIN 600 MG/D5W (PMX) 50 ML IVPB SCH; +LIDOCAINE 1% (MDV) 20 ML INJ ONE; +ONDA4TAB14 PO; +SOD CHLORIDE 0.9% 1,000 ML IV SCH
[2017-05-04] MEDS ORDERED: METF1000 PO (09:45)
[2017-05-04] MEDS ORDERED: OMEP20CA16 PO (09:47)
[2017-05-04] MEDS ORDERED: NAPR-688 PO (09:52)
[2017-05-04] MEDS ORDERED: IBUP-1542 PO (09:52)
[2017-05-04] MEDS ORDERED: PROPOFOL 20 ML ONE (10:55)
[2017-05-04] MEDS ORDERED: MIDAZOLAM 1 MG/ML 2 ML INJ ONE (10:55)
[2017-05-04] MEDS ORDERED: FENTAnyl 50 MCG/ML VIAL ONE ×2 (10:55→12:28)
[2017-05-04] MEDS ORDERED: ROPIVACAINE 0.2% 20 ML VIAL ONE ×2 (11:00→11:51)
[2017-05-04] MEDS ORDERED: BUPIVACAINE 0.25% (MPF) 30 ML INJ ONE (11:00)
[2017-05-04] MEDS ORDERED: BUPIVACAINE 0.25% (MPF) 30 ML INJ INJ ONE (11:00)
[2017-05-04] MEDS ORDERED: POLYMYXIN/BACITRACIN 1L IRRIG ONE (11:09)
[2017-05-04] MEDS ORDERED: ONDANSETRON 4 MG INJ ONE ×2 (11:15→12:48)
[2017-05-04] MEDS ORDERED: CEFAZOLIN 1 GM INJ ONE (11:15)
[2017-05-04] MEDS ORDERED: SUCCINYLCHOLINE CHLORIDE 100 MG/5 ML SYG IV ONE (11:17)
[2017-05-04] MEDS ORDERED: ROCURONIUM 50 MG INJ ONE (11:18)
[2017-05-04] MEDS ORDERED: FAMOTIDINE 20 MG INJ ONE (11:26)
[2017-05-04] MEDS ORDERED: PHENYLephrine (100 MCG/ML) 5ML SYG ONE (11:36)
[2017-05-04] MEDS ORDERED: KETOROLAC 30 MG INJ ONE (12:02)
[2017-05-04] MEDS ORDERED: ACETAMINOPHEN 1000MG/100ML IV 100 ML ONE (12:02)
[2017-05-04] MEDS ORDERED: SUGAMMADEX SODIUM 200 MG/2 ML VIAL IV ONE (12:07)
[2017-05-04] MEDS ORDERED: KETOROLAC 30 MG INJ IV STA (12:13)
[2017-05-04] MEDS ORDERED: HYDROCODONE/APAP (5/325) TAB PO ONE (12:30)
[2017-05-04] MEDS ORDERED: PROCHLORPERAZINE 10 MG INJ IV PRN (12:30)
[2017-05-04] MEDS ORDERED: HYDROmorphONE (0.2 MG/ML) 10ML SYG IV PRN ×2 (12:30)
[2017-05-04] MEDS ORDERED: DIPHENHYDRAMINE 50 MG INJ IV PRN (12:30)
[2017-05-04] MEDS ORDERED: MEPERIDINE 25 MG INJ IV PRN (12:30)
[2017-05-04] MEDS ORDERED: NALOXONE (0.4 MG/ML) INJ IV STA (12:41)
--- NOTE | 2017-05-04 12:53 | OPR ---
Date/Time of Note Date/Time of Note DATE: 05/04/17 TIME: 12:44 Operative Report Procedure Date: May 04, 2017 Preoperative Diagnosis incarcerated incisional hernia Postoperative Diagnosis same Operation Performed 1. open incarcerated incisional hernia repair 2. implantation of mesh cpt code 48349 3. lysis of adhesions for one hour 4. therapeutic injection of subcutaneous marcaine cpt code 85053 Surgeon: Taras BLISS Indications This is a 36-year-old female with an incarcerated incisional hernia. She required surgical repair. Risks alternatives benefits and percent were discussed the patient. Patient expresses understanding and consents to the operation. Procedure Description Patient is taken to the OR and prepped and draped in usual sterile fashion. Surgical timeout is performed. IV antibiotics given. Midline incision is made with a 10 blade around the umbilicus. Dissection cautery was carried onto the hernia. The hernia sac is opened sharply with Metzenbaum scissors and 10 blade. Fascial edges are identified and lateral skin flaps are created to get to the fascial edge. There is a significant amount of adhesions to the anterior abdominal wall surrounding the fascia. This is from a prior incision. Scar tissue and adhesions are lysed for approximately 1 hour. There is good hemostasis. Fascial edges are freshened approximately 2-3 cm in all direction. Underlay mesh with proceed 15 x 20 cm is implanted with interrupted 0 Prolene. The fascial edges are then closed primarily with #1 loop PDS. There is good hemostasis. Incision site is irrigated with Betadine irrigation. The skin is closed with skin delon. Therapeutic subcutaneous Marcaine was injected through the incision site. Dry dressings were applied. Taras BLISS May 04, 2017 12:53
[2017-05-04] MEDS: HYDROmorphONE (0.2 MG/ML) 10ML SYG IV PRN ×3 (13:00→13:35)
== END 2017-05-04 15:00 | disposition home or self-care (01) ==
LOC: SDS 08:41
PROVIDERS: ATTEND Surgery
DX: K43.0 Incisional hernia with obstruction, without gangrene (principal); E11.9 Type 2 diabetes mellitus without complications; E66.9 Obesity, unspecified; Z68.36 Body mass index [BMI] 36.0-36.9, adult; Z88.8 Allergy status to other drugs, medicaments and biological substances
CPT/HCPCS: 49561; 49568; 82962; 84703; C1781; J0131; J0690; J0780; J1170; J1885; J2250; J2405; J2795; J3010; Z7512; Z7610; J2370; J7999